=== PATIENT | male | born 1955 | race Caucasian/White ===

== ENCOUNTER 2017-08-05 11:41 | Inpatient (IN) ==
[2017-08-05] MEDS ORDERED: Ipratropium/Albuterol Neb 3 ML IH ONE (11:57)
[2017-08-05] MEDS ORDERED: Ipratropium/Albuterol Neb 3 ML ONE (12:08)
[2017-08-05 12:16] LABS: Hematocrit 32.2 % (37.5-50.1); Hemoglobin 11.2 g/dL (12.9-16.9); Immature Platelets 3.8 % (1.1-6.1); Mean Corpuscular HGB Conc 34.8 g/dL (31.6-35.5); Mean Corpuscular Hemoglobin 34.1 pg (28.0-33.3); Mean Corpuscular Volume 98.2 fL (83.0-100.0); Mean Platelet Volume 10.3 fL (9.4-12.4); Red Blood Count 3.28 M/mcL (4.19-5.50); Red Cell Distribution Width 13.6 % (11.5-14.5)
[2017-08-05] MEDS ORDERED: 0.9 % Sodium Chloride 1,000 ML IVC ONE (12:18)
--- NOTE | 2017-08-05 12:27 | Emergency Department Note ---
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 Bilateral pneumonia Qualifiers: Pneumonia type: due to unspecified organism Lung location: lower lobe of lung Qualified Code(s): J18.9 - Pneumonia, unspecified organism Disposition: Admitted As Inpatient Condition: Good Referrals: Omaira Rajan MD [Primary Care Provider] - Forms: ED Satisfaction Letter Time of Disposition: 13:47 General Adult HPI - General Chief complaint: ED Shortness of Breath/Dyspnea Stated complaint: low O2, nausea Time Seen by Provider: 08/05/17 11:57 Source: patient Limitations: no limitations Nursing Notes Reviewed: Yes Vital Signs Reviewed: Yes - History of Present Illness HPI Narrative: History of present illness: 62-year-old male former smoker to stand stop smoking 17 years ago presents with about one week of increasing cough malaise and shortness of breath. Patient had fever MAXIMUM TEMPERATURE of 103 yesterday. Denies ill contacts exotic food or recent travel. Also has decreased appetite and feeling fatigued and slightly weak. No headache or photophobia. There is been no dysuria. No skin rashes noted. No medication changes. Patient arrives and was brought back right away from the waiting room with a pulse ox of approximately 85% on room air. She has no known prior history of COPD asthma home oxygen using conditions Patient is here for further evaluation Pain Scale: 5 - Related Data Home Medications Medication Instructions Recorded Confirmed Aspirin [Lo-Dose Aspirin EC] 81 mg PO DAILY 08/05/17 08/05/17 Atorvastatin Calcium [Lipitor] 20 mg PO QPM 08/05/17 08/05/17 Carvedilol [Coreg] 6.25 mg PO BIDWM 08/05/17 08/05/17 Esomeprazole Magnesium [Nexium 20 mg PO DAILY 08/05/17 08/05/17 24Hr] Ibuprofen [Motrin] 800 mg PO Q8HR 08/05/17 08/05/17 Lisinopril [Zestril] 20 mg PO DAILY 08/05/17 08/05/17 Allergies Allergy/AdvReac Type Severity Reaction Status Date / Time No Known Allergies Allergy Verified 08/05/17 11:50 All systems ED: reviewed and negative except as stated. Constitutional: Reports: fever, chills, weakness Respiratory: Reports: cough, dyspnea Gastrointestinal: Reports: nausea Past Medical History - Past Medical History Attestation: Yes The following information was validated with the patient. Source: patient, old records reviewed, obtained from family Medical history: Reports: non-contributory, hyperlipidemia, hypertension, myocardial infarction Psychiatric history: Reports: no psych history - Social History Smoking Status: Former smoker Smokeless Tobacco Status: No Alcohol use: Reports: occasionally Drug use: Reports: none Physical Exam - General Limitations: no limitations General appearance: alert, in distress - Head Head exam: atraumatic, normocephalic - Eye Eye exam: Present: normal appearance, PERRL, EOMI - ENT ENT exam: normal oropharynx, mucous membranes dry - Neck Neck exam: Present: normal inspection, full ROM - Chest Chest inspection: Present: normal inspection, symmetric chest wall rise - Respiratory Respiratory exam: Present: respiratory distress, prolonged expiratory phase - Cardiovascular Cardiovascular exam: Present: normal rhythm, tachycardia - Abdominal Exam Abdominal exam: Present: soft, tenderness. Absent: guarding, rebound - Extremities Exam Extremities exam: Present: normal inspection, full ROM - Expanded Lower Extremity Exam Neurovascular/Tendon exam: Present: normal capillary refill Gait: not tested/not observed - Back Exam Back exam: Present: normal inspection, full ROM - Neurological Exam Neurological exam: Present: alert, oriented X3, CN II-XII intact - Psychiatric Psychiatric exam: Present: normal affect, normal mood - Skin Skin exam: Present: warm, dry, intact Course - Reevaluation(s) Reevaluation #1: The patient's history of fever and respiratory difficulty certainly pneumonia is in the differential. Patient is getting chest x-ray IV fluids do an abscess troponin screening labs. Providing 35 minutes of critical care services to this patient with admission disposition pending. Time: 12:33 Reevaluation #2: Patient's chest x-ray is read as bilateral airspace disease consistent with pneumonia. IV Rocephin and Zithromax ordered. Discussed case with the hospitalist Dr. Garcia. Additionally pathology called and said there was a blast cells on the peripheral smear certainly concerning about possible oncologic process. Patient to be admitted in stable condition with oncology consultation. Time: 13:45 Vital Signs Temperature 97.9 F 08/05/17 11:45 Pulse Rate 89 08/05/17 11:45 Respiratory Rate 18 08/05/17 11:45 Blood Pressure 108/68 08/05/17 11:45 O2 Sat by Pulse Oximetry 85 08/05/17 11:45 Temperature 97.9 F 08/05/17 11:45 Pulse Rate 89 08/05/17 11:45 Respiratory Rate 18 08/05/17 12:15 Blood Pressure 108/68 08/05/17 11:45 O2 Sat by Pulse Oximetry 85 08/05/17 12:15 Oxygen Delivery Oxygen Delivery Room Air Medical Decision Making - Medical Records Medical records reviewed: Yes I reviewed the patient's medical records. - Lab Data Lab results reviewed: Yes I reviewed the patient's lab results. Result diagrams: 08/05/17 12:09 08/05/17 12:09 Lab Results 08/05/17 08/05/17 08/05/17 Range/Units 12:09 12:09 12:09 WBC 8.5 (4.3-11.1) K/mcL RBC 3.28 L (4.19-5.50) M/mcL Hgb 11.2 L (12.9-16.9) g/dL Hct 32.2 L (37.5-50.1) % MCV 98.2 (83.0-100.0) fL MCH 34.1 H (28.0-33.3) pg MCHC 34.8 (31.6-35.5) g/dL RDW 13.6 (11.5-14.5) % Plt Count 97 L (140-400) K/mcL MPV 10.3 (9.4-12.4) fL Seg Neutrophils % 13.0 % Band Neutrophils % 9.0 H (0-4) % Lymphocytes % 67.0 % Metamyelocytes % 1.0 H (0) % Blast Cells % 10.0 H (0) % Neutrophils # 1.9 (1.6-8.9) K/mcL Lymphocytes # 5.7 H (0.6-4.6) K/mcL Reactive Lymphocytes Present A (Not Present) Toxic Granulation Present A (Not Present) Platelet Estimate Decreased L (Normal) Immature Plt Fraction 3.8 (1.1-6.1) % Sodium 141 (136-145) mEq/L Potassium 3.6 (3.5-4.5) mEq/L Chloride 107 (98-109) mEq/L Carbon Dioxide 18 L (19-29) mEq/L BUN 59 H (8-26) mg/dL Creatinine 2.71 H (0.72-1.25) mg/dL Est GFR ( Amer) 29 L (> 60) Est GFR (Non-Af Amer) 24 L (> 60) BUN/Creatinine Ratio 22 (6-26) Glucose 155 H (70-99) mg/dL Calculated Osmolality 312 H (280-300) Lactic Acid 1.6 (0.5-2.2) mmol/L Calcium 8.5 L (8.6-10.8) mg/dL Troponin I (0-0.03) ng/mL 08/05/17 Range/Units 12:09 WBC (4.3-11.1) K/mcL RBC (4.19-5.50) M/mcL Hgb (12.9-16.9) g/dL Hct (37.5-50.1) % MCV (83.0-100.0) fL MCH (28.0-33.3) pg MCHC (31.6-35.5) g/dL RDW (11.5-14.5) % Plt Count (140-400) K/mcL MPV (9.4-12.4) fL Seg Neutrophils % % Band Neutrophils % (0-4) % Lymphocytes % % Metamyelocytes % (0) % Blast Cells % (0) % Neutrophils # (1.6-8.9) K/mcL Lymphocytes # (0.6-4.6) K/mcL Reactive Lymphocytes (Not Present) Toxic Granulation (Not Present) Platelet Estimate (Normal) Immature Plt Fraction (1.1-6.1) % Sodium (136-145) mEq/L Potassium (3.5-4.5) mEq/L Chloride (98-109) mEq/L Carbon Dioxide (19-29) mEq/L BUN (8-26) mg/dL Creatinine (0.72-1.25) mg/dL Est GFR ( Amer) (> 60) Est GFR (Non-Af Amer) (> 60) BUN/Creatinine Ratio (6-26) Glucose (70-99) mg/dL Calculated Osmolality (280-300) Lactic Acid (0.5-2.2) mmol/L Calcium (8.6-10.8) mg/dL Troponin I 0.01 (0-0.03) ng/mL - Radiology Data Radiology results reviewed: Yes I reviewed the patient's radiology results. - EKG Data EKG #1 EKG attestation: Yes I reviewed and interpreted this EKG. EKG results narrative: Twelve-lead EKG interpreted without Cardiologic assistance shows: Sinus rhythm at 85 bpm, normal UT QS and QT corrected. Nonspecific ST-T changes with signs of old infarct. No old EKG available for comparison.
[2017-08-05 12:28] LABS: Calcium 8.5 mg/dL (8.6-10.8); Potassium 3.6 mEq/L (3.5-4.5)
[2017-08-05 12:48] LABS: Platelet Count 97 K/mcL (140-400)
[2017-08-05 13:12] LABS: Lymphocytes # 5.7 K/mcL (0.6-4.6); Neutrophils # 1.9 K/mcL (1.6-8.9); Platelet Estimate Decreased (Normal); Reactive Lymphocytes Present (Not Present)
[2017-08-05 13:13] LABS: Toxic Granulation Present (Not Present)
[2017-08-05] MEDS ORDERED: Azithromycin 500 MG in D5% in Water 250 ML IVPB ONE (13:44)
[2017-08-05] MEDS ORDERED: cefTRIAXone 1,000 MG in Water for inj. (sterile) 10 ML IVP ONE (13:44)
[2017-08-05] MEDS ORDERED: *HR* Morphine 2 MG/ML SYRINGE IVP PRN (16:07)
[2017-08-05] MEDS ORDERED: Naloxone 0.4 MG/ML INJ IVP PRN (16:07)
--- NOTE | 2017-08-05 16:26 | Internal Med History&Physical ---
Date of Encounter: 08/05/17 Time of Encounter: 16:22 Assessment and Plan (1) Bilateral pneumonia Current visit: Yes Status: Acute 62/male Multiple comorbid issues as mentioned below. Was recently evaluated by PCP and noted that persistently elevated WBC count Patient has an appointment to see an oncologist this week. Patient is a progressively worsening shortness of breath. This is the reason he visited emergency room. Noted that patient has a bilateral lower lobe pneumonia. Also it was noted that patient has a more than 10% blast cells on peripheral blood smear. Plan: -Admitted as inpatient. Antibiotics after blood culture. Ceftriaxone/azithromycin. 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 Patient is around 10% blasts in the peripheral blood. I have spoken with hematology oncology and he will himself review the peripheral blood smear and will give us recommendations We are drawing blood for flow cytometry and sending for further evaluation. (3) DVT prophylaxis Current visit: Yes Status: Acute SCD Medical decision making: This patient has a moderate to severe risk of worsening in spite of being on appropriate medication secondary to the underlying newly diagnosed hematological malignancy Internal Medicine - H&P: HPI Chief complaint: Shortness of breath Admitted From: Emergency Dept Plans for Post Hospital Care: Home History of present illness: PCP: Dr. Lopez Brief past medical history: Hypertension, GERD, hyperlipidemia, coronary artery disease, recently patient was evaluated for persistent elevated white blood cell count, patient has an appointment with oncology and coming week. History of present medical illness: Patient has ongoing worsening shortness of breath for the past 2 weeks. This morning it was noted that his shortness of breath was getting worse. Patient also had a cough with the yellowish-green expectoration. Noted that patient's oxygen saturation was progressively worsening. Patient was concerned about these symptoms and that is the reason he decided to come to the emergency room. Patient denies chest pain, nausea, vomiting, abdominal pain, dizziness or diarrhea. Workup in the emergency room: Patient was evaluated in the emergency room. X- ray chest was drawn. X-ray chest was suggestive of bilateral nasal pneumonia. Lab called and suggested that patient has a 10% blast cells. Reason for admission: Patient has a bilateral pneumonia with 10% blast cells. Family history: Noncontributory. Past Med Surg Social Fam HX - Past Medical History Medical history: non-contributory, hyperlipidemia, hypertension, myocardial infarction Psychiatric history: no psych history - Social History Smoking Status: Former smoker Smokeless Tobacco Status: No Alcohol use: occasionally Drug use: none Internal Medicine - H&P: Meds Aspirin [Lo-Dose Aspirin EC] 81 mg PO DAILY 08/05/17 [History] Atorvastatin Calcium [Lipitor] 20 mg PO QPM 08/05/17 [History] Carvedilol [Coreg] 6.25 mg PO BIDWM 08/05/17 [History] Esomeprazole Magnesium [Nexium 24Hr] 20 mg PO DAILY 08/05/17 [History] Ibuprofen [Motrin] 800 mg PO Q8HR 08/05/17 [History] Lisinopril [Zestril] 20 mg PO DAILY 08/05/17 [History] 3 Allergy/AdvReac Type Severity Reaction Status Date / Time No Known Allergies Allergy Verified 08/05/17 11:50 All Systems PM: A 10-system review of systems was performed and is negative for pertinent findings except as documented above in the HPI. - Constitutional Constitutional: no chills, no fever(s), no night sweats - EENT Eyes: no change in vision, no discharge, no pain, no photophobia Ears: no ear discharge, no ear pain, no tinnitus Nose, mouth and throat: no dysphagia, no nasal discharge, no neck pain, no sore throat - Cardiovascular Cardiovascular ROS IM: lightheadedness, no chest pain, no diaphoresis, no dyspnea, no palpitations, no syncope - Respiratory Respiratory: cough, dyspnea, wheezing, no excessive phlegm production - Gastrointestinal Gastrointestinal: no abdominal pain, no diarrhea, no hematemesis, no hematochezia, no melena, no nausea, no vomiting - Musculoskeletal Musculoskeletal ROS IM: no numbness, no tingling - Integumentary Integumentary IM: no rash, no unusual bruising - Neurological Neurological ROS: no confusion, no convulsions, no focal weakness, no numbness, no tingling, no tremor(s) - Hematologic/Lymphatic Hematologic/Lymphatic: no easy bruising - Constitutional Vitals: Temp Pulse Resp BP Pulse Ox 97.9 F 89 18 108/68 85 08/05/17 11:45 08/05/17 11:45 08/05/17 12:15 08/05/17 11:45 08/05/17 12:15 General appearance: Present: A&O X 3, pleasant, no acute distress, answers questions appropriately - Head Head exam: Present: atraumatic, normocephalic - Eye Eye exam: Present: PERRL, conjuntiva pink, sclera anicteric Pupils: Present: PERRL - Neck Neck exam general surgery: Present: supple, trachea midline. Absent: lymphadenopathy - Respiratory Respiratory exam: Present: CTAB. Absent: accessory muscle use, rales, rhonchi, wheezes - Cardiovascular Cardiovascular exam: Present: RRR, +S1, +S2. Absent: diastolic murmur, gallop, rubs, systolic murmur - GI/Abdominal GI/Abdominal exam: Present: normal bowel sounds, soft, no peritoneal signs. Absent: distended, tenderness - Extremities Exam Extremities exam: Present: warm, radial pulses palpable and symmetrical. Absent : calf tenderness, cyanotic, pedal edema - Neurological Exam Neurological exam: Present: CN II-XII intact, oriented X3, no focal deficits. Absent: pronater drift, facial droop, speech deficit - Skin Skin exam: Present: dry, intact Internal Med - H&P Results - Labs CBC & Chem 7: 08/05/17 12:09 08/05/17 12:09 Labs: Discussed with the emergency room physician.
[2017-08-05] MEDS: 0.9 % Sodium Chloride 1,000 ML IVC SCH (17:50)
--- NOTE | 2017-08-05 18:55 | Oncology Inp Consult Note ---
Date of Encounter: 08/05/17 Time of Encounter: 18:54 Assessment and Plan (1) Abnormal CBC Status: Acute Assessment and plan: - I discussed with Mr. Sosa and his the hematology abnormalities found in his peripheric blood smear and CBC, including features concerning for an underlying hematology malignancy, based on the presence of immature white blood cells( suspicious for blasts, approximately 10 percent). I discussed with him the recommendations to proceed with a bone marrow biopsy. He expressed agreement with my recommendations. - He reports not history of recent bleeding events, and I did not see aur rods in his blood smear so APL seems unlikely. I requested primary team to check APTT , INR to rule out subclinic coagulopathy. - Repeat CBC in AM, and transfuse 1 PRBC if Hgb level is less than 7 or HCT level is less than 21 percent. - Transfuse one pool of platelets if Platelet count is less than 20K or 50 K if there is associated bleeding. - Please arrange for a Bone marrow biopsy under IR guidance. - will follow up (2) Bilateral pneumonia Status: Acute Assessment and plan: - Continue empiric antibiotic coverage and infectious work up as per primary team. Qualifiers: Pneumonia type: due to unspecified organism Lung location: lower lobe of lung Qualified Code(s): J18.9 - Pneumonia, unspecified organism (3) Abdominal pain Status: Acute Assessment and plan: Reports right upper quadrant abdominal pain. No rebound tenderness during exam, but pain with moderate palpation in RUQ. Please check LFTs and consider RUQ abdominal US. Qualifiers: Abdominal location: right upper quadrant Qualified Code(s): R10.11 - Right upper quadrant pain - Data of Consult Requesting Physician: Deanna Casiano MD [facility] Consult Narrative Reason for consult: abnormal CBC History of present illness: Mr. Sosa is a 62 year old male with history of GERD, HTN, CAD, presenting to the ED with a one week history of fever, cough. He was diagnosed with bilateral PNA upon arrival to the ED. His CBC and blood smear showed immature wbcs, suspicious for blasts ( approximately 10 percent), an hematology recommendation was requested for further recommendations. Mr. Sosa was seen with his during the visit. He was scheduled to see Dr. Rizvi tomorrow for further investigation of his leucocytosis. He reports that he decided to come to the ED after experiencing worsening of his cough and shortness of breath. HE denies any recent bleeding events. Denies any history of hematology malignancies in his family, but his father had pancreatic cancer. His hospital course included CXR that showed findings consistent with bilateral PNA and his CBC and peripheric blood smear revealed immature white blood cells, suspicious for blasts( 10 percent). Reports feeling bloating for several days, with poor appetite and experiencing right upper quadrant abdominal pain while in the hospital. Past Med Surg Social Fam HX - Past Medical History Medical history: hyperlipidemia, hypertension, myocardial infarction Psychiatric history: no psych history - Social History Smoking Status: Former smoker Smokeless Tobacco Status: No Alcohol use: occasionally Drug use: none Medications and Allergies Aspirin [Lo-Dose Aspirin EC] 81 mg PO DAILY 08/05/17 [History] Atorvastatin Calcium [Lipitor] 20 mg PO QPM 08/05/17 [History] Carvedilol [Coreg] 6.25 mg PO BIDWM 08/05/17 [History] Esomeprazole Magnesium [Nexium 24Hr] 20 mg PO DAILY 08/05/17 [History] Ibuprofen [Motrin] 800 mg PO Q8HR 08/05/17 [History] Lisinopril [Zestril] 20 mg PO DAILY 08/05/17 [History] 3 Allergy/AdvReac Type Severity Reaction Status Date / Time No Known Allergies Allergy Verified 08/05/17 11:50 Constitutional: Present: fatigue, fever(s) Cardiovascular: Absent: chest pain, diaphoresis Respiratory: Present: cough, dyspnea Gastrointestinal: Present: abdominal pain, bloating Musculoskeletal: Absent: abnormal gait, joint swelling Neurological: Absent: abnormal gait, behavioral changes Psychiatric: Absent: auditory hallucinations, behavioral changes Endocrine: Present: fatigue Hematologic/Lymphatic: Present: as per HPI Oncology - Exam - Constitutional Vitals: Temp Pulse Resp BP Pulse Ox 97.9 F 53 24 159/75 90 08/05/17 11:45 08/05/17 17:57 08/05/17 17:57 08/05/17 17:57 08/05/17 17:57 - Head Head exam: Present: normal inspection, normocephalic - Eye Eye exam: Present: EOMI, normal appearance - ENT ENT exam: Present: normal exam - Neck Neck exam: Absent: lymphadenopathy, tenderness - Respiratory Respiratory exam: Present: rales - Cardiovascular Cardiovascular exam: Present: RRR. Absent: gallop - GI/Abdominal GI/Abdominal exam: Present: normal bowel sounds, soft, tenderness (right uppper quadrant tenderness.). Absent: rebound - Extremities Exam Extremities exam: Present: normal inspection. Absent: pedal edema - Back Exam Back exam: Absent: paraspinal tenderness - Neurological Exam Neurological exam: Present: alert, oriented X3 - Psychiatric Psychiatric exam: Present: normal affect, normal mood - Skin Skin exam: Present: normal color Consult Discharge Plan - Plan Referrals: Omaira Rajan MD [Primary Care Provider] -
[2017-08-05 20:21] LABS: INR 1.5; Prothrombin Time 15.8 Seconds (9.4-12.1)
[2017-08-05 20:24] LABS: Activated Partial Thrombo Time 28.7 Seconds (26.0-36.0)
[2017-08-06 03:29] LABS: INR 1.4; Prothrombin Time 15.7 Seconds (9.4-12.1)
[2017-08-06 03:32] LABS: Activated Partial Thrombo Time 29.1 Seconds (26.0-36.0)
[2017-08-06] MEDS: Acetaminophen 325 MG TABLET PO PRN ×3 (03:32→15:46)
[2017-08-06 03:36] LABS: Hematocrit 30.6 % (37.5-50.1); Hemoglobin 10.7 g/dL (12.9-16.9); Mean Corpuscular Hemoglobin 34.9 pg (28.0-33.3); Mean Corpuscular Volume 99.7 fL (83.0-100.0); Mean Platelet Volume 11.1 fL (9.4-12.4); Red Blood Count 3.07 M/mcL (4.19-5.50)
[2017-08-06 03:38] LABS: Albumin/Globulin Ratio 0.5 (1.1-2.2); Bilirubin,Total 1.9 mg/dL (0.2-1.2); Calcium 8.1 mg/dL (8.6-10.8); Immature Platelets 5.4 % (1.1-6.1); Magnesium 1.4 mg/dL (1.6-2.6); Phosphorous 4.1 mg/dL (2.3-4.7); Potassium 3.7 mEq/L (3.5-4.5); Red Cell Distribution Width 13.6 % (11.5-14.5)
[2017-08-06 03:39] LABS: Platelet Count 89 K/mcL (140-400)
[2017-08-06 04:09] LABS: Lymphocytes # 5.3 K/mcL (0.6-4.6); Neutrophils # 2.3 K/mcL (1.6-8.9)
[2017-08-06 04:13] LABS: Platelet Estimate Decreased (Normal)
[2017-08-06 04:14] LABS: Reactive Lymphocytes Present (Not Present); Smudge Cells Present (Not Present)
[2017-08-06] MEDS: 0.9 % Sodium Chloride 1,000 ML IVC SCH (08:45)
[2017-08-06] MEDS ORDERED: Albuterol 2.5 MG/3 ML NEBULIZER IH PRN (09:39)
[2017-08-06] MEDS ORDERED: MetroNIDAZOLE 500 MG/100 ML 500 MG/100 ML BAG IVPB SCH (11:00)
[2017-08-06] MEDS ORDERED: Vancomycin 1,500 MG in D5% in Water 250 ML IVPB SCH (11:00)
[2017-08-06] MEDS: Ipratropium/Albuterol Neb 3 ML IH SCH ×2 (11:24→16:14)
--- NOTE | 2017-08-06 13:29 | Oncology Inp Progress Note ---
Date of Encounter: 08/06/17 Time of Encounter: 13:24 (1) Abnormal CBC Current Visit: Yes Status: Acute Assessment and plan: - Mr. Sosa reports not significant overnight events. Blood cell counts overall remain stable. AM labs revealed decreased of peripheric blood blasts to 4 percent. Awaiting for peripheric blood flowcytometry. He is aware of plans for IR bone marrow biopsy for tomorrow. - Denies bleeding events. APTT within normal limits and INR 1.4, not suggestive of DIC. Recommendations/plan: - Check serum LDH, uric acid, haptoglobin, DIC panel. - Monitor CBC daily and transfuse 1 PRBC if Hgb level is less than 7 or HCT level is less than 21 percent. - Transfuse one pool of platelets if Platelet count is less than 20K or 50 K if there is associated bleeding. - Bone del rosario biopsy in AM (2) Abdominal pain Current Visit: Yes Status: Acute Assessment and plan: -Reports persistent RUQ abdominal pain; Labs today showed total bili of 1.9 mg/ dl. - Consider RUQ abdominal pain to rule out acute cholecystitis, cholangitis. - Monitor LFTs daily, check direct and indirect bilirrubin, as well as LDH. Qualifiers: Abdominal location: right upper quadrant Qualified Code(s): R10.11 - Right upper quadrant pain (3) Bilateral pneumonia Current Visit: Yes Status: Acute Assessment and plan: - Continue empiric antibiotic coverage and infectious work up as per primary team. Qualifiers: Pneumonia type: due to unspecified organism Lung location: lower lobe of lung Qualified Code(s): J18.9 - Pneumonia, unspecified organism Oncology: Subj Interval history: Denies significant overnight events. Again febrile today. seen with his at bedside. reports improved RUQ abdominal pain, but still persistent. Denies bleeding events. - Constitutional Vitals: Vital Signs Temp Pulse Resp BP Pulse Ox 08/06/17 11:25 20 90 08/06/17 11:01 100.8 F H 104 20 179/69 90 08/06/17 09:36 101.9 F H 08/06/17 07:38 98.4 F 93 17 136/69 91 08/06/17 03:51 98.9 F 105 20 126/64 90 08/05/17 23:13 97.3 F L 90 17 113/63 88 08/05/17 21:48 98.1 F 92 18 116/72 89 08/05/17 17:57 53 24 159/75 90 Intake and Output 08/05/17 08/06/17 08/06/17 23:59 07:59 15:59 Intake Total 1010 / 1010 1410 / 1410 Output Total 100 / 100 275 / 275 300 / 300 Balance 910 / 910 -275 / -275 1110 / 1110 Intake: IV Fluids 1010 / 1010 1050 / 1050 0.9 % Sodium Chloride 1,000 ML 1000 / 1000 1000 / 1000 @ 70 mls/hr IVC .[id number] [facility] Rx #:[id number] Rocephin 1,000 MG In Water for inj. (sterile) 10 ML @ 300 mls/ hr IVP ONCE ONE Rx#:[id number] Magnesium Sulfate Premix 2gm/ 50 / 50 50mL 2 gm In 50 ml @ 46.296 mls /hr IVPB Q1H [facility] Rx#:[id number] Oral 360 / 360 Output: Urine 100 / 100 275 / 275 300 / 300 Other: Meal Breakfast Percent of Meal Consumed 25% Weight 101 kg - Head Head exam: Present: normal inspection, normocephalic - Respiratory Respiratory exam: Present: rales. Absent: respiratory distress - Cardiovascular Cardiovascular exam: Present: RRR. Absent: irregular rhythm - GI/Abdominal GI/Abdominal exam: Present: normal bowel sounds, tenderness (RUQ tenderness.). Absent: organomegaly - Extremities Exam Extremities exam: Absent: pedal edema, tenderness - Back Exam Back exam: Present: normal inspection. Absent: paraspinal tenderness - Neurological Exam Neurological exam: Present: alert, oriented X3 Oncology: Obj Data - Labs CBC & Chem 7: 08/06/17 02:50 08/06/17 02:50 Labs: Laboratory Results - last 24 hr 08/05/17 08/06/17 08/06/17 19:57 02:50 02:50 WBC 8.3 RBC 3.07 L Hgb 10.7 L Hct 30.6 L MCV 99.7 MCH 34.9 H MCHC 35.0 RDW 13.6 Plt Count 89 L MPV 11.1 Seg Neutrophils % 22.0 Band Neutrophils % 6.0 H Lymphocytes % 64.0 Myelocytes % 4.0 H Blast Cells % 4.0 H Neutrophils # 2.3 Lymphocytes # 5.3 H Reactive Lymphocytes Present A Smudge Cells Present A Platelet Estimate Decreased L Immature Plt Fraction 5.4 PT 15.8 H 15.7 H INR 1.5 1.4 APTT 28.7 29.1 Sodium Potassium Chloride Carbon Dioxide BUN Creatinine Est GFR ( Amer) Est GFR (Non-Af Amer) BUN/Creatinine Ratio Glucose Calculated Osmolality Calcium Phosphorus Magnesium Total Bilirubin AST ALT Alkaline Phosphatase Serum Total Protein Albumin Globulin Albumin/Globulin Ratio 08/06/17 02:50 WBC RBC Hgb Hct MCV MCH MCHC RDW Plt Count MPV Seg Neutrophils % Band Neutrophils % Lymphocytes % Myelocytes % Blast Cells % Neutrophils # Lymphocytes # Reactive Lymphocytes Smudge Cells Platelet Estimate Immature Plt Fraction PT INR APTT Sodium 140 Potassium 3.7 Chloride 106 Carbon Dioxide 19 BUN 60 H Creatinine 2.67 H Est GFR ( Amer) 30 L Est GFR (Non-Af Amer) 24 L BUN/Creatinine Ratio 22 Glucose 137 H Calculated Osmolality 309 H Calcium 8.1 L Phosphorus 4.1 Magnesium 1.4 L Total Bilirubin 1.9 H AST 16 ALT 12 Alkaline Phosphatase 59 Serum Total Protein 6.0 Albumin 2.0 L Globulin 4.0 H Albumin/Globulin Ratio 0.5 L - ABG Interpretation ABG results: PT/INR, D-dimer PT 15.7 Seconds (9.4-12.1) H 08/06/17 02:50 Consult Discharge Plan - Plan Referrals: Omaira Rajan MD [Primary Care Provider] -
[2017-08-06] MEDS ORDERED: Azithromycin 500 MG in D5% in Water 250 ML IVPB SCH (15:00)
--- NOTE | 2017-08-06 15:51 | Internal Med Progress Note ---
Date of Encounter: 08/06/17 Time of Encounter: 15:49 - Assessment and plan (1) Sepsis Current Visit: Yes Status: Acute Qualifiers: Sepsis type: sepsis due to unspecified organism Qualified Code(s): A41.9 - Sepsis, unspecified organism (2) Bilateral pneumonia Current Visit: Yes Status: Acute Qualifiers: Pneumonia type: due to unspecified organism Lung location: lower lobe of lung Qualified Code(s): J18.9 - Pneumonia, unspecified organism (3) Acute renal failure Current Visit: Yes Status: Acute Qualifiers: Acute renal failure type: unspecified Qualified Code(s): N17.9 - Acute kidney failure, unspecified (4) Hypomagnesemia Current Visit: Yes Status: Acute (5) 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 Diagnosed with the bilateral pneumonia. Appears diaphoretic and toxic and not feeling well. Hemodynamically stable though. 10% blast cells noticed on peripheral dyspnea. Oncology consulted who has recommended bone marrow biopsy. In presence of 10% blast cells and was suspicion for hematological malignancy she is considered immune compromise and therefore I will change his antibiotics to vancomycin and Zosyn. Daily CBC. Start IV fluids. He is on duo nebs also. I discussed the case with interventional radiology and a bone marrow biopsy will be performed tomorrow. Acute renal failure noted and as noted above IV fluid abdomen is started and repeat renal function tomorrow. Low magnesium will be supplemented. Recheck tomorrow. Patient is septic. Await blood culture - Constitutional Vitals: Temp Pulse Resp BP Pulse Ox 101.5 F H 104 20 179/69 90 08/06/17 13:39 08/06/17 11:01 08/06/17 11:25 08/06/17 11:01 08/06/17 11:25 General appearance: Present: disheveled, mild distress, A&O X 3, answers questions appropriately Exam: Overall appeared diaphoretic and toxic and sick. - Head Head exam: Present: atraumatic, normocephalic - Eye Eye exam: Present: PERRL, conjuntiva pink, sclera anicteric Pupils: Present: PERRL - Neck Neck exam general surgery: Present: supple, trachea midline. Absent: lymphadenopathy - Respiratory Respiratory exam: Present: CTAB. Absent: accessory muscle use, rales, rhonchi, wheezes - Cardiovascular Cardiovascular exam: Present: RRR, +S1, +S2. Absent: diastolic murmur, gallop, rubs, systolic murmur - GI/Abdominal GI/Abdominal exam: Present: normal bowel sounds, soft, no peritoneal signs. Absent: distended, tenderness - Extremities Exam Extremities exam: Present: warm, radial pulses palpable and symmetrical. Absent : calf tenderness, cyanotic, pedal edema - Neurological Exam Neurological exam: Present: CN II-XII intact, oriented X3, no focal deficits. Absent: pronater drift, facial droop, speech deficit - Skin Skin exam: Present: dry, intact Internal Medicine: Result - Labs CBC & Chem 7: 08/06/17 02:50 08/06/17 02:50 Labs: Short CBC 08/06/17 Range/Units 02:50 WBC 8.3 (4.3-11.1) K/mcL Hgb 10.7 L (12.9-16.9) g/dL Hct 30.6 L (37.5-50.1) % Plt Count 89 L (140-400) K/mcL Neutrophils # 2.3 (1.6-8.9) K/mcL BMP 08/06/17 02:50 Sodium 140 Potassium 3.7 Chloride 106 Carbon Dioxide 19 BUN 60 H Creatinine 2.67 H Glucose 137 H Calcium 8.1 L Liver Function 08/06/17 Range/Units 02:50 Total Bilirubin 1.9 H (0.2-1.2) mg/dL AST 16 (5-34) Units/L ALT 12 (0-55) Units/L Alkaline Phosphatase 59 (38-126) Units/L Albumin 2.0 L (3.5-5.0) g/dL - ABG Interpretation ABG results: PT/INR, D-dimer PT 15.7 Seconds (9.4-12.1) H 08/06/17 02:50 Consult Discharge Plan - Plan Referrals: Omaira Rajan MD [Primary Care Provider] -
[2017-08-06] MEDS ORDERED: Cefepime HCl 2,000 MG in Water for inj. (sterile) 20 ML IVP SCH (16:00)
--- NOTE | 2017-08-06 16:44 | Electrocardiograph Report ---
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
[2017-08-06] MEDS ORDERED: Ibuprofen 400 MG TABLET PO PRN (17:11)
[2017-08-06 17:53] LABS: Uric Acid 7.6 mg/dL (3.5-7.2)
--- NOTE | 2017-08-06 18:05 | Event Note ---
Date of Encounter: 08/06/17 Time of Encounter: 18:01 Patient has been spiking fever 103. His antibiotic coverage was broadened in the morning and now he is on vancomycin and cefepime and Flagyl. His respiratory status deteriorated and now he needs 50% oxygen on partial rebreather. Hemodynamically patient is stable. He is oriented to time place and person and not complaining of any other symptoms. Patient will be transferred to ICU. Discussed the case with the oncologist correctional officer sergeant Dr. Diop. We discussed the cytometry report and Dr. Diop has indicated that we need a conclusive diagnosis for which a biopsy will be needed. I have already discussed the case with interventional radiologist who plans to do biopsy tomorrow as patient already ate today. He will be nothing by mouth after midnight. Dr. Diop and I discussed the possibility of transferring patient to [facility] therefore I discussed the case with Dr. Bashir in [facility] who has agreed for the transfer however he wants patient in intensive care unit. [facility] will inform us when they have a bed available. I ordered uric acid and DIC profile.
[2017-08-06 18:44] LABS: INR 1.5; Prothrombin Time 16.3 Seconds (9.4-12.1)
[2017-08-06 18:47] LABS: Activated Partial Thrombo Time 29.9 Seconds (26.0-36.0)
[2017-08-06 18:48] VITALS: BP 114/71
[2017-08-06] MEDS ORDERED: Aminoglycoside Consult 1 EACH MC ONE (18:54)
[2017-08-06 20:20] LABS: Fibrinogen > 1000 mg/dL (169-393)
== END 2017-08-06 18:55 | disposition critical access hospital (66) | DRG 871 ==
LOC: 2ANU 11:41 → EMEROO 11:41 → 2ANU 17:42
PROVIDERS: ADMIT Internal Medicine; ATTEND Internal Medicine

== ENCOUNTER 2018-01-27 13:38 | Inpatient (IN) ==
[2018-01-27] MEDS ORDERED: *HR* EPINEPHrine 1 MG/10 ML SYRINGE ONE ×2 (13:43→19:05)
[2018-01-27] MEDS ORDERED: Ipratropium/Albuterol Neb 3 ML ONE (13:44)
[2018-01-27] MEDS ORDERED: methylPREDNISolone 125 MG/2 ML VIAL ONE (13:46)
[2018-01-27] MEDS ORDERED: *HR* FentaNYL (PF) 100 MCG/2 ML VIAL ONE (13:50)
[2018-01-27] MEDS ORDERED: 0.9 % Sodium Chloride 2,000 ML ONE (13:56)
[2018-01-27 14:32] LABS: ABG Base Excess -18 mEq/L (-2 to 3); ABG HCO3 18 mEq/L (21-27); ABG Oxygen Saturation 38 % (95-98); ABG PCO2 146 mmHg (35-45); ABG PO2 48 mmHg (85-104); ABG TCO2 23 mEq/L (20-26)
[2018-01-27 14:59] LABS: ABG PCO2 > 150 mmHg (35-45); ABG PO2 67 mmHg (85-104)
[2018-01-27 15:08] LABS: Hematocrit 34.1 % (37.5-50.1); Mean Corpuscular HGB Conc 32.3 g/dL (31.6-35.5); Mean Corpuscular Hemoglobin 35.8 pg (28.0-33.3); Mean Corpuscular Volume 111.1 fL (83.0-100.0); Mean Platelet Volume 11.8 fL (9.4-12.4); Platelet Count 155 K/mcL (140-400); Red Blood Count 3.07 M/mcL (4.19-5.50); Red Cell Distribution Width 14.2 % (11.5-14.5)
[2018-01-27 15:13] LABS: INR 1.3
[2018-01-27] MEDS ORDERED: Sodium Bicarbonate 150 MEQ in D5% in Water 1,000 ML IVC ONE (15:15)
[2018-01-27 15:28] LABS: Troponin I < 0.03 ng/mL (< 0.04)
[2018-01-27] MEDS ORDERED: Amiodarone Premix 150 MG/100 ML BAG IVPB ONE (15:37)
[2018-01-27 15:38] LABS: Alanine Aminotransferase 9 Units/L (7-52); Albumin 3.3 g/dL (3.5-5.7); Albumin/Globulin Ratio 1.2 (1.1-2.2); Alkaline Phosphatase 43 Units/L (34-104); Aspartate Amino Transferase 16 Units/L (13-39); BUN/Creatinine Ratio 24 (6-26); Bilirubin,Total 0.6 mg/dL (0.3-1.0); Blood Urea Nitrogen 20 mg/dL (8-23); Calcium 9.3 mg/dL (8.6-10.3); Carbon Dioxide 20 mEq/L (23-29); Chloride 109 mEq/L (98-107); Creatine Kinase 19 Units/L (30-223); Globulin 2.8 g/dL (2.4-3.5); Glucose 171 mg/dL (70-105); Osmolality,Calculated 305 (280-300); Potassium 4.8 mEq/L (3.5-5.1); Sodium 144 mEq/L (136-145); Total Protein 6.1 g/dL (6.4-8.9); eGFR For African Americans > 60 (> 60); eGFR For Non-African Americans > 60 (> 60)
[2018-01-27 15:49] LABS: Lymphocytes # 21.4 K/mcL (0.6-4.6); Monocytes # 0.5 K/mcL (0.0-1.3); Platelet Estimate Normal (Normal); Smudge Cells Present (Not Present)
--- NOTE | 2018-01-27 15:51 | Emergency Department Note ---
Disposition Clinical Impression: Respiratory failure with hypoxia and hypercapnia Qualifiers: Chronicity: acute Qualified Code(s): J96.01 - Acute respiratory failure with hypoxia; J96.02 - Acute respiratory failure with hypercapnia; J96.02 - Acute respiratory failure with hypercapnia; J96.02 - Acute respiratory failure with hypercapnia Disposition: Still a Patient Condition: Critical Referrals: Omaira Rajan MD [Primary Care Provider] - Forms: ED Satisfaction Letter General Adult HPI - General Chief complaint: ED Shortness of Breath/Dyspnea Stated complaint: unresponsive Time Seen by Provider: 01/27/18 15:22 Source: family Limitations: no limitations - History of Present Illness Pain Scale: 0 - Related Data Home Medications Medication Instructions Recorded Confirmed Aspirin [Lo-Dose Aspirin EC] 81 mg PO DAILY 08/05/17 01/27/18 Atorvastatin Calcium [Lipitor] 20 mg PO QPM 08/05/17 01/27/18 Carvedilol [Coreg] 6.25 mg PO BIDWM 08/05/17 01/27/18 Lisinopril [Zestril] 20 mg PO DAILY 08/05/17 01/27/18 Acyclovir [Zovirax] 800 mg PO BID 09/10/17 01/27/18 Multivitamin with Iron 1 each PO DAILY 11/03/17 01/27/18 [Multivitamins with Iron] Acetaminophen [Tylenol] 500 mg PO Q6HR PRN 12/29/17 01/27/18 Cholecalciferol (D-3) [Vitamin D] 5,000 unit PO DAILY 12/29/17 01/27/18 Magnesium Oxide [Magnesium] 250 mg PO DAILY 12/29/17 01/27/18 Allopurinol [Zyloprim 300 MG] 300 mg PO DAILY 01/27/18 01/27/18 Amoxicillin/Clavulanate [Augmentin] 125 mg PO BIDWM 01/27/18 01/27/18 Ranitidine HCl [Zantac] 150 mg PO BID 01/27/18 01/27/18 Allergies Allergy/AdvReac Type Severity Reaction Status Date / Time No Known Allergies Allergy Verified 01/27/18 09:22 Past Medical History - Past Medical History Medical history: Reports: hyperlipidemia, hypertension, myocardial infarction Psychiatric history: Reports: no psych history - Social History Smoking Status: Former smoker Smokeless Tobacco Status: No Alcohol use: Reports: occasionally Drug use: Reports: none Physical Exam - General Limitations: no limitations General appearance: alert, in no apparent distress Course Course Narrative: See Dr Golden and See documentation for HPI/Physical Exam/MDM, procedure note only. Vital Signs Respiratory Rate 30 01/27/18 13:54 Blood Pressure 94/54 01/27/18 13:54 O2 Sat by Pulse Oximetry 72 01/27/18 13:54 Temperature 0 F L 01/27/18 14:13 Pulse Rate 105 01/27/18 14:13 Respiratory Rate 18 01/27/18 14:13 Blood Pressure 148/97 01/27/18 14:13 O2 Sat by Pulse Oximetry 30 01/27/18 14:13 Oxygen Delivery Oxygen Delivery Nasal Cannula Procedures - Central Line Placement Right Femoral Central Line Inserted*: Yes Central Line Catheter Replacement*: No Central Line Insertion: emergent Procedural Pause: verify patient name and date of , gareth and assess the site, assemble equipment and verify supplies, perform hand hygiene Patient Placed on Monitor/Pulse Ox: Yes During the Procedure: clinician is wearing sterile gloves, cap, mask,& gown during insertion, sterile field and sterile technique are maintained, patient's face is covered with drape or mask and wearing a cap, everyone in room is wearing a mask Central Line Prep: Chlorhexidine scrub Prep the Procedure Site: apply chloraprep to the skin using a back and forth scrubbing motion, apply chloraprep for 30 seconds (upper body), 1-2 min ( femoral sites), drape the patient with a full body drape Local Anesthetic: other anesthetic Central Line Lumen Inserted: triple (Introducer 8fr with 30cm 7fr triple lumen) Post Procedure: sutured in place, good blood return, all ports aspirated, flushed, capped, sterile dressing applied, guide wire removed and visualized, dressing is dated Patient Tolerated Procedure: well, no complications Complications: none Name of Clinician Inserting Central Line: Ann, Elder Attending Clinician Assisting/Completing Checklist: Shabana Date: 01/27/18 Time: 15:00 Medical Decision Making - Lab Data Result diagrams: 01/27/18 13:46 01/27/18 13:46 Lab Results 01/27/18 01/27/18 01/27/18 Range/Units 13:46 13:46 13:46 WBC 24.9 H D (4.3-11.1) K/mcL RBC 3.07 L (4.19-5.50) M/mcL Hgb 11.0 L (12.9-16.9) g/dL Hct 34.1 L (37.5-50.1) % MCV 111.1 H (83.0-100.0) fL MCH 35.8 H (28.0-33.3) pg MCHC 32.3 (31.6-35.5) g/dL RDW 14.2 (11.5-14.5) % Plt Count 155 (140-400) K/mcL MPV 11.8 (9.4-12.4) fL Immature Gran % Test Not Performed Seg Neutrophils % 12.0 % Lymphocytes % 86.0 % Monocytes % 2.0 % Eosinophils % Test Not Performed Basophils % Test Not Performed Neutrophils # 3.0 (1.6-8.9) K/mcL Lymphocytes # 21.4 H (0.6-4.6) K/mcL Monocytes # 0.5 (0.0-1.3) K/mcL Eosinophils # Test Not Performed Basophils # Test Not Performed Smudge Cells Present A (Not Present) Platelet Estimate Normal (Normal) PT 14.0 H (9.4-12.1) Seconds INR 1.3 ABG pH (7.32-7.45) pH Units ABG pCO2 (35-45) mmHg ABG pO2 (85-104) mmHg ABG HCO3 (21-27) mEq/L ABG Total CO2 (20-26) mEq/L ABG O2 Saturation (95-98) % ABG Base Excess (-2 to 3) mEq/L O2 Delivery Device Inspired O2 (1-15=lpm kl01-122=%) Sodium 144 (136-145) mEq/L Potassium 4.8 (3.5-5.1) mEq/L Chloride 109 H (98-107) mEq/L Carbon Dioxide 20 L (23-29) mEq/L BUN 20 (8-23) mg/dL Creatinine 0.85 (0.70-1.30) mg/dL Est GFR ( Amer) > 60 (> 60) Est GFR (Non-Af Amer) > 60 (> 60) BUN/Creatinine Ratio 24 (6-26) Glucose 171 H (70-105) mg/dL Calculated Osmolality 305 H (280-300) Lactic Acid (0.5-2.2) mmol/L Calcium 9.3 (8.6-10.3) mg/dL Total Bilirubin 0.6 (0.3-1.0) mg/dL AST 16 (13-39) Units/L ALT 9 (7-52) Units/L Alkaline Phosphatase 43 (34-104) Units/L Creatine Kinase 19 L (30-223) Units/L Troponin I < 0.03 (< 0.04) ng/mL B-Natriuretic Peptide (Less than 100) pg/mL Serum Total Protein 6.1 L (6.4-8.9) g/dL Albumin 3.3 L (3.5-5.7) g/dL Globulin 2.8 (2.4-3.5) g/dL Albumin/Globulin Ratio 1.2 (1.1-2.2) 01/27/18 01/27/18 01/27/18 Range/Units 13:46 14:27 14:55 WBC (4.3-11.1) K/mcL RBC (4.19-5.50) M/mcL Hgb (12.9-16.9) g/dL Hct (37.5-50.1) % MCV (83.0-100.0) fL MCH (28.0-33.3) pg MCHC (31.6-35.5) g/dL RDW (11.5-14.5) % Plt Count (140-400) K/mcL MPV (9.4-12.4) fL Immature Gran % Seg Neutrophils % % Lymphocytes % % Monocytes % % Eosinophils % Basophils % Neutrophils # (1.6-8.9) K/mcL Lymphocytes # (0.6-4.6) K/mcL Monocytes # (0.0-1.3) K/mcL Eosinophils # Basophils # Smudge Cells (Not Present) Platelet Estimate (Normal) PT (9.4-12.1) Seconds INR ABG pH 6.70 L* (7.32-7.45) pH Units ABG pCO2 146 H* (35-45) mmHg ABG pO2 48 L* (85-104) mmHg ABG HCO3 18 L (21-27) mEq/L ABG Total CO2 23 (20-26) mEq/L ABG O2 Saturation 38 L (95-98) % ABG Base Excess -18 L (-2 to 3) mEq/L O2 Delivery Device Bagging Inspired O2 100.0 (1-15=lpm hm10-275=%) Sodium (136-145) mEq/L Potassium (3.5-5.1) mEq/L Chloride (98-107) mEq/L Carbon Dioxide (23-29) mEq/L BUN (8-23) mg/dL Creatinine (0.70-1.30) mg/dL Est GFR ( Amer) (> 60) Est GFR (Non-Af Amer) (> 60) BUN/Creatinine Ratio (6-26) Glucose (70-105) mg/dL Calculated Osmolality (280-300) Lactic Acid > 10.0 H* (0.5-2.2) mmol/L Calcium (8.6-10.3) mg/dL Total Bilirubin (0.3-1.0) mg/dL AST (13-39) Units/L ALT (7-52) Units/L Alkaline Phosphatase (34-104) Units/L Creatine Kinase (30-223) Units/L Troponin I (< 0.04) ng/mL B-Natriuretic Peptide 316 H (Less than 100) pg/mL Serum Total Protein (6.4-8.9) g/dL Albumin (3.5-5.7) g/dL Globulin (2.4-3.5) g/dL Albumin/Globulin Ratio (1.1-2.2) 01/27/18 Range/Units 14:55 WBC (4.3-11.1) K/mcL RBC (4.19-5.50) M/mcL Hgb (12.9-16.9) g/dL Hct (37.5-50.1) % MCV (83.0-100.0) fL MCH (28.0-33.3) pg MCHC (31.6-35.5) g/dL RDW (11.5-14.5) % Plt Count (140-400) K/mcL MPV (9.4-12.4) fL Immature Gran % Seg Neutrophils % % Lymphocytes % % Monocytes % % Eosinophils % Basophils % Neutrophils # (1.6-8.9) K/mcL Lymphocytes # (0.6-4.6) K/mcL Monocytes # (0.0-1.3) K/mcL Eosinophils # Basophils # Smudge Cells (Not Present) Platelet Estimate (Normal) PT (9.4-12.1) Seconds INR ABG pH 6.80 L* (7.32-7.45) pH Units ABG pCO2 > 150 H* (35-45) mmHg ABG pO2 67 L (85-104) mmHg ABG HCO3 TNP (21-27) mEq/L ABG Total CO2 TNP (20-26) mEq/L ABG O2 Saturation TNP (95-98) % ABG Base Excess TNP (-2 to 3) mEq/L O2 Delivery Device Bagging Inspired O2 100.0 (1-15=lpm dq18-078=%) Sodium (136-145) mEq/L Potassium (3.5-5.1) mEq/L Chloride (98-107) mEq/L Carbon Dioxide (23-29) mEq/L BUN (8-23) mg/dL Creatinine (0.70-1.30) mg/dL Est GFR ( Amer) (> 60) Est GFR (Non-Af Amer) (> 60) BUN/Creatinine Ratio (6-26) Glucose (70-105) mg/dL Calculated Osmolality (280-300) Lactic Acid (0.5-2.2) mmol/L Calcium (8.6-10.3) mg/dL Total Bilirubin (0.3-1.0) mg/dL AST (13-39) Units/L ALT (7-52) Units/L Alkaline Phosphatase (34-104) Units/L Creatine Kinase (30-223) Units/L Troponin I (< 0.04) ng/mL B-Natriuretic Peptide (Less than 100) pg/mL Serum Total Protein (6.4-8.9) g/dL Albumin (3.5-5.7) g/dL Globulin (2.4-3.5) g/dL Albumin/Globulin Ratio (1.1-2.2)
[2018-01-27] MEDS ORDERED: Potassium Chloride 40 MEQ/200 ML BAG IVPB PRN (16:02)
--- NOTE | 2018-01-27 16:04 | Emergency Department Note ---
Disposition Clinical Impression: Respiratory failure with hypoxia and hypercapnia, Hypoxia, Cardiac arrest, Respiratory distress Disposition: Admitted As Inpatient Condition: Critical General Adult HPI - General Chief complaint: ED Shortness of Breath/Dyspnea Stated complaint: unresponsive Time Seen by Provider: 01/27/18 15:22 Source: family Limitations: no limitations - History of Present Illness Pain Scale: 0 - Related Data Home Medications Medication Instructions Recorded Confirmed Aspirin [Lo-Dose Aspirin EC] 81 mg PO DAILY 08/05/17 01/27/18 Atorvastatin Calcium [Lipitor] 20 mg PO QPM 08/05/17 01/27/18 Carvedilol [Coreg] 6.25 mg PO BIDWM 08/05/17 01/27/18 Lisinopril [Zestril] 20 mg PO DAILY 08/05/17 01/27/18 Acyclovir [Zovirax] 800 mg PO BID 09/10/17 01/27/18 Multivitamin with Iron 1 each PO DAILY 11/03/17 01/27/18 [Multivitamins with Iron] Acetaminophen [Tylenol] 500 mg PO Q6HR PRN 12/29/17 01/27/18 Cholecalciferol (D-3) [Vitamin D] 5,000 unit PO DAILY 12/29/17 01/27/18 Magnesium Oxide [Magnesium] 250 mg PO DAILY 12/29/17 01/27/18 Allopurinol [Zyloprim 300 MG] 300 mg PO DAILY 01/27/18 01/27/18 Amoxicillin/Clavulanate [Augmentin] 125 mg PO BIDWM 01/27/18 01/27/18 Ranitidine HCl [Zantac] 150 mg PO BID 01/27/18 01/27/18 Allergies Allergy/AdvReac Type Severity Reaction Status Date / Time No Known Allergies Allergy Verified 01/27/18 09:22 Past Medical History - Past Medical History Medical history: Reports: hyperlipidemia, hypertension, myocardial infarction Psychiatric history: Reports: no psych history - Social History Smoking Status: Former smoker Smokeless Tobacco Status: No Alcohol use: Reports: occasionally Drug use: Reports: none Physical Exam - General Limitations: no limitations General appearance: alert, in no apparent distress Course - Reevaluation(s) Reevaluation #1: Discussed with geophysical computer. He is requesting flow cytometry on the peripheral smear that he reviewed. Time: 16:18 Vital Signs Respiratory Rate 30 01/27/18 13:54 Blood Pressure 94/54 01/27/18 13:54 O2 Sat by Pulse Oximetry 72 01/27/18 13:54 Temperature 0 F L 01/27/18 14:13 Pulse Rate 101 01/27/18 18:30 Respiratory Rate 18 01/27/18 14:13 Blood Pressure 96/70 01/27/18 18:30 O2 Sat by Pulse Oximetry 95 01/27/18 18:30 Oxygen Delivery Oxygen Delivery Ventilator Medical Decision Making - Lab Data Result diagrams: 01/27/18 13:46 01/27/18 13:46 Lab Results 01/27/18 01/27/18 01/27/18 Range/Units 13:46 13:46 13:46 WBC 24.9 H D (4.3-11.1) K/mcL RBC 3.07 L (4.19-5.50) M/mcL Hgb 11.0 L (12.9-16.9) g/dL Hct 34.1 L (37.5-50.1) % MCV 111.1 H (83.0-100.0) fL MCH 35.8 H (28.0-33.3) pg MCHC 32.3 (31.6-35.5) g/dL RDW 14.2 (11.5-14.5) % Plt Count 155 (140-400) K/mcL MPV 11.8 (9.4-12.4) fL Immature Gran % Test Not Performed Seg Neutrophils % 12.0 % Lymphocytes % 86.0 % Monocytes % 2.0 % Eosinophils % Test Not Performed Basophils % Test Not Performed Neutrophils # 3.0 (1.6-8.9) K/mcL Lymphocytes # 21.4 H (0.6-4.6) K/mcL Monocytes # 0.5 (0.0-1.3) K/mcL Eosinophils # Test Not Performed Basophils # Test Not Performed Smudge Cells Present A (Not Present) Platelet Estimate Normal (Normal) PT 14.0 H (9.4-12.1) Seconds INR 1.3 ABG pH (7.32-7.45) pH Units ABG pCO2 (35-45) mmHg ABG pO2 (85-104) mmHg ABG HCO3 (21-27) mEq/L ABG Total CO2 (20-26) mEq/L ABG O2 Saturation (95-98) % ABG Base Excess (-2 to 3) mEq/L O2 Delivery Device Inspired O2 (1-15=lpm kt46-163=%) Sodium 144 (136-145) mEq/L Potassium 4.8 (3.5-5.1) mEq/L Chloride 109 H (98-107) mEq/L Carbon Dioxide 20 L (23-29) mEq/L BUN 20 (8-23) mg/dL Creatinine 0.85 (0.70-1.30) mg/dL Est GFR ( Amer) > 60 (> 60) Est GFR (Non-Af Amer) > 60 (> 60) BUN/Creatinine Ratio 24 (6-26) Glucose 171 H (70-105) mg/dL Calculated Osmolality 305 H (280-300) Lactic Acid (0.5-2.2) mmol/L Calcium 9.3 (8.6-10.3) mg/dL Total Bilirubin 0.6 (0.3-1.0) mg/dL AST 16 (13-39) Units/L ALT 9 (7-52) Units/L Alkaline Phosphatase 43 (34-104) Units/L Creatine Kinase 19 L (30-223) Units/L Troponin I < 0.03 (< 0.04) ng/mL B-Natriuretic Peptide (Less than 100) pg/mL Serum Total Protein 6.1 L (6.4-8.9) g/dL Albumin 3.3 L (3.5-5.7) g/dL Globulin 2.8 (2.4-3.5) g/dL Albumin/Globulin Ratio 1.2 (1.1-2.2) 01/27/18 01/27/18 01/27/18 Range/Units 13:46 14:27 14:55 WBC (4.3-11.1) K/mcL RBC (4.19-5.50) M/mcL Hgb (12.9-16.9) g/dL Hct (37.5-50.1) % MCV (83.0-100.0) fL MCH (28.0-33.3) pg MCHC (31.6-35.5) g/dL RDW (11.5-14.5) % Plt Count (140-400) K/mcL MPV (9.4-12.4) fL Immature Gran % Seg Neutrophils % % Lymphocytes % % Monocytes % % Eosinophils % Basophils % Neutrophils # (1.6-8.9) K/mcL Lymphocytes # (0.6-4.6) K/mcL Monocytes # (0.0-1.3) K/mcL Eosinophils # Basophils # Smudge Cells (Not Present) Platelet Estimate (Normal) PT (9.4-12.1) Seconds INR ABG pH 6.70 L* (7.32-7.45) pH Units ABG pCO2 146 H* (35-45) mmHg ABG pO2 48 L* (85-104) mmHg ABG HCO3 18 L (21-27) mEq/L ABG Total CO2 23 (20-26) mEq/L ABG O2 Saturation 38 L (95-98) % ABG Base Excess -18 L (-2 to 3) mEq/L O2 Delivery Device Bagging Inspired O2 100.0 (1-15=lpm cb65-161=%) Sodium (136-145) mEq/L Potassium (3.5-5.1) mEq/L Chloride (98-107) mEq/L Carbon Dioxide (23-29) mEq/L BUN (8-23) mg/dL Creatinine (0.70-1.30) mg/dL Est GFR ( Amer) (> 60) Est GFR (Non-Af Amer) (> 60) BUN/Creatinine Ratio (6-26) Glucose (70-105) mg/dL Calculated Osmolality (280-300) Lactic Acid > 10.0 H* (0.5-2.2) mmol/L Calcium (8.6-10.3) mg/dL Total Bilirubin (0.3-1.0) mg/dL AST (13-39) Units/L ALT (7-52) Units/L Alkaline Phosphatase (34-104) Units/L Creatine Kinase (30-223) Units/L Troponin I (< 0.04) ng/mL B-Natriuretic Peptide 316 H (Less than 100) pg/mL Serum Total Protein (6.4-8.9) g/dL Albumin (3.5-5.7) g/dL Globulin (2.4-3.5) g/dL Albumin/Globulin Ratio (1.1-2.2) 05/01/18 Range/Units 14:55 WBC (4.3-11.1) K/mcL RBC (4.19-5.50) M/mcL Hgb (12.9-16.9) g/dL Hct (37.5-50.1) % MCV (83.0-100.0) fL MCH (28.0-33.3) pg MCHC (31.6-35.5) g/dL RDW (11.5-14.5) % Plt Count (140-400) K/mcL MPV (9.4-12.4) fL Immature Gran % Seg Neutrophils % % Lymphocytes % % Monocytes % % Eosinophils % Basophils % Neutrophils # (1.6-8.9) K/mcL Lymphocytes # (0.6-4.6) K/mcL Monocytes # (0.0-1.3) K/mcL Eosinophils # Basophils # Smudge Cells (Not Present) Platelet Estimate (Normal) PT (9.4-12.1) Seconds INR ABG pH 6.80 L* (7.32-7.45) pH Units ABG pCO2 > 150 H* (35-45) mmHg ABG pO2 67 L (85-104) mmHg ABG HCO3 TNP (21-27) mEq/L ABG Total CO2 TNP (20-26) mEq/L ABG O2 Saturation TNP (95-98) % ABG Base Excess TNP (-2 to 3) mEq/L O2 Delivery Device Bagging Inspired O2 100.0 (1-15=lpm ma92-147=%) Sodium (136-145) mEq/L Potassium (3.5-5.1) mEq/L Chloride (98-107) mEq/L Carbon Dioxide (23-29) mEq/L BUN (8-23) mg/dL Creatinine (0.70-1.30) mg/dL Est GFR ( Amer) (> 60) Est GFR (Non-Af Amer) (> 60) BUN/Creatinine Ratio (6-26) Glucose (70-105) mg/dL Calculated Osmolality (280-300) Lactic Acid (0.5-2.2) mmol/L Calcium (8.6-10.3) mg/dL Total Bilirubin (0.3-1.0) mg/dL AST (13-39) Units/L ALT (7-52) Units/L Alkaline Phosphatase (34-104) Units/L Creatine Kinase (30-223) Units/L Troponin I (< 0.04) ng/mL B-Natriuretic Peptide (Less than 100) pg/mL Serum Total Protein (6.4-8.9) g/dL Albumin (3.5-5.7) g/dL Globulin (2.4-3.5) g/dL Albumin/Globulin Ratio (1.1-2.2) Critical Care Time Critical Care Time: Yes Total Critical Care Time: 65 Attestation: Critical care performed: Time is exclusive of separately billable procedures. Time includes: direct patient care, patient reassessment, coordination of patient care, interpretation of data (laboratory data, radiology data, and respiratory data), review of patient's medical records, medical consultation and documentation of patient care. Procedures included in critical care time: Procedures excluded from critical care time: Attestation Statement - Attestation Attestation: I examined this patient and my medical decision-making was reviewed with the Resident Physician. I agree with the documented findings, disposition and treatment plan as described except to the extent set forth below. Patient presents to the ED in severe respiratory distress. Patient is with his . He was having an outpatient IVIG infusion performed today per his chronic leukemia. Recently admitted at the [facility] for thoracentesis. states he complained of shortness of breath and then became unresponsive. He has had multiple IV Ig infusions before with no side effect. On examination he arrived in severe respiratory distress. Oxygen saturations were reading 40-50% . We did treat him for an anaphylactic reaction with no response. He was intubated. Shortly after intubation we lost pulse and ACLS was begun. Patient was given multiple medications. He was given TPA. He received multiple rounds of epinephrine and bicarbonate. Calcium. He had a trauma line placed in his groin. Multiple ABGs which did show slight improvement of his pH. Patient continued to have a loss of pulse shortly after R[place], with every resuscitation. . At the time of admission to the ICU he was satting 90% on a ventilator with a PEEP of 18. He was on epinephrine, norepinephrine, and bicarbonate drips. CTA and head CT pending on his way to ICU. Patient made a DNR rest prior to his movement ICU.
--- NOTE | 2018-01-27 16:11 | Emergency Department Note ---
Disposition Clinical Impression: Respiratory failure with hypoxia and hypercapnia, Hypoxia, Cardiac arrest, Respiratory distress Disposition: Admitted As Inpatient Condition: Critical Referrals: Omaira Rajan MD [Primary Care Provider] - Forms: ED Satisfaction Letter CPR HPI - General Chief Complaint: ED Shortness of Breath/Dyspnea Stated Complaint: unresponsive Time Seen by Provider: 01/27/18 15:22 Source: family Mode of arrival: EMS Limitations: altered mental status, age Nursing Notes Reviewed: Yes Vital Signs Reviewed: Yes - History of Present Illness HPI Narrative: 62-year-old male with a history of CLL status post IVIG therapy prior to arrival presents with his with decreased responsiveness. provided history stating the patient had his typical IVIG therapy which is at the past. States that the patient became more and more unresponsive with difficulty in breathing. Patient does not provide an accurate history given his altered mental status. states that the patient has had a history of CAD in the remote past. No recent trauma. No anticoagulation. States that the patient does not have a history of COPD. Denies any specific prodrome prior to today's therapy. - Related Data Home Medications Medication Instructions Recorded Confirmed Aspirin [Lo-Dose Aspirin EC] 81 mg PO DAILY 08/05/17 01/27/18 Atorvastatin Calcium [Lipitor] 20 mg PO QPM 08/05/17 01/27/18 Carvedilol [Coreg] 6.25 mg PO BIDWM 08/05/17 01/27/18 Lisinopril [Zestril] 20 mg PO DAILY 08/05/17 01/27/18 Acyclovir [Zovirax] 800 mg PO BID 09/10/17 01/27/18 Multivitamin with Iron 1 each PO DAILY 11/03/17 01/27/18 [Multivitamins with Iron] Acetaminophen [Tylenol] 500 mg PO Q6HR PRN 12/29/17 01/27/18 Cholecalciferol (D-3) [Vitamin D] 5,000 unit PO DAILY 12/29/17 01/27/18 Magnesium Oxide [Magnesium] 250 mg PO DAILY 12/29/17 01/27/18 Allopurinol [Zyloprim 300 MG] 300 mg PO DAILY 01/27/18 01/27/18 Amoxicillin/Clavulanate [Augmentin] 125 mg PO BIDWM 01/27/18 01/27/18 Ranitidine HCl [Zantac] 150 mg PO BID 01/27/18 01/27/18 Allergies Allergy/AdvReac Type Severity Reaction Status Date / Time No Known Allergies Allergy Verified 01/27/18 09:22 Limitations: ROS unobtainable due to patients medical condition CPR PMH - Past Medical History Medical history: Reports: hyperlipidemia, hypertension, myocardial infarction Psychiatric history: Reports: no psych history - Social History Smoking Status: Former smoker Alcohol use: Reports: occasionally Drug use: Reports: none Physical Exam - General Limitations: altered mental status General appearance: alert, in no apparent distress - Head Head exam: atraumatic - Eye Eye exam: Present: normal appearance, mydriasis - ENT ENT exam: normal exam, mucous membranes moist - Neck Neck exam: Present: normal inspection, trachea midline - Chest Chest inspection: Present: symmetric chest wall rise. Absent: rash - Respiratory Respiratory exam: Present: respiratory distress, other (Labored respirations with diffuse coarse) - Cardiovascular Cardiovascular exam: Present: tachycardia. Absent: systolic murmur - Abdominal Exam Abdominal exam: Present: soft, Non-Tender - Extremities Exam Extremities exam: Present: normal inspection - Expanded Lower Extremity Exam Neurovascular/Tendon exam: Present: other (Faint and thready pulse) - Neurological Exam Neurological exam: Present: other (Decreased GCS, moving upper extremities with nonpurposeful movements.) - Skin Skin exam: Present: warm, intact, normal color, diaphoresis. Absent: rash, cyanosis Course Course Narrative: Patient presented with decreased responsiveness. Patient was hypoxic with labored respirations. Initial concerns for anaphylaxis, heart failure, ARDS. Patient was treated broadly initially with anaphylactic dosing of epinephrine as well as IV steroids and Benadryl. Supplemental oxygen applied which did not reverse the patient's hypoxia. Patient became increasingly less responsive. Lungs revealed diffuse rhonchi. Patient was intubated due to declining mental status as well as labored respirations with hypoxia. Patient subsequently went into hypoxemic cardiac arrest and underwent various rounds of ACLS. Patient received 5-7 mg of epinephrine throughout the course of ACLS. Patient also received bicarbonate, calcium. Patient was ultimately placed on a nor epi as well as epinephrine infusion. Patient was also placed on a bicarbonate drip. Critical care was consult it during the course of the patient's ED evaluation. Attempt to optimize oxygenation and ventilation was unsuccessful. Initial bedside echo revealed trace pericardial effusion with no significant increase in the right ventricle dilation. Patient's lung exam did reveal B-lines in nearly all hodges. Stat echo was ordered given the patient's critical status. Family ultimately stated that the patient is DNR CC a and does not want any further heroic lifesaving measures. Declining any additional IV medications including antiarrhythmics and/or pressors. Despite persistent ACLS and aggressive resuscitation the patient remained acidotic. Patient was also given IV thrombolytics scissors highest concern of PE in a patient with leukemia. - Reevaluation(s) Reevaluation #1: Discussed the course of the ED evaluation with the family. At this point the family wished to change the patient's CODE STATUS. Family is at bedside. [employer] Technician support provided. States that they do not want any further rescue interventions Time: 16:16 Reevaluation #2: Patient did have a run of V. tach which resolved. Family declined any antiarrhythmic therapy. Time: 16:16 - Consultations Consultation #1: Critical care was consulted Time: 16:19 Consultation #2: Patient's family at bedside. Patient's blood pressure remains preserved. Patient will get a CT of the head as well as the chest. Time: 17:16 Vital Signs Respiratory Rate 30 01/27/18 13:54 Blood Pressure 94/54 01/27/18 13:54 O2 Sat by Pulse Oximetry 72 01/27/18 13:54 Temperature 0 F L 01/27/18 14:13 Pulse Rate 99 01/27/18 17:19 Respiratory Rate 18 01/27/18 14:13 Blood Pressure 91/68 01/27/18 17:19 O2 Sat by Pulse Oximetry 90 01/27/18 17:19 Oxygen Delivery Oxygen Delivery Ventilator Procedures - Intubation Time out performed: No sedative: Etomidate Mg Given: 20 paralytic: Rocuronium Mg Given: 100 Laryngoscope: Hermilo ET Tube Size: 7.5 ET Tube Uncuffed: Yes Tube Secured Depth (cm): 24 Tube Secured Location: lips Tube Placement Confirmation: visualized tube passing through cords, equal breath sounds bilaterally, no breath sounds over epigastrium, confirmation by capnometry Patient Tolerated Procedure: well, no complications Intubation Complications: none Cardiac Arrest/CPR - MDM Narrative Medical decision making narrative: Patient has a history of CLL. Patient presented with decreased responsiveness. Patient had an element of VQ mismatch and shunting. Would could not correct with supplemental oxygen. Patient required mechanical ventilation. Patient likely has an element of ARDS are TRALI patient remained on pressors for comfort per family's request. Patient's condition is guarded and the family is aware of the patient's eminent prognosis. - Lab Data Lab results reviewed: Yes I reviewed the patient's lab results. Result diagrams: 01/27/18 13:46 01/27/18 13:46 Lab Results 01/27/18 01/27/18 01/27/18 Range/Units 13:46 13:46 13:46 WBC 24.9 H D (4.3-11.1) K/mcL RBC 3.07 L (4.19-5.50) M/mcL Hgb 11.0 L (12.9-16.9) g/dL Hct 34.1 L (37.5-50.1) % MCV 111.1 H (83.0-100.0) fL MCH 35.8 H (28.0-33.3) pg MCHC 32.3 (31.6-35.5) g/dL RDW 14.2 (11.5-14.5) % Plt Count 155 (140-400) K/mcL MPV 11.8 (9.4-12.4) fL Immature Gran % Test Not Performed Seg Neutrophils % 12.0 % Lymphocytes % 86.0 % Monocytes % 2.0 % Eosinophils % Test Not Performed Basophils % Test Not Performed Neutrophils # 3.0 (1.6-8.9) K/mcL Lymphocytes # 21.4 H (0.6-4.6) K/mcL Monocytes # 0.5 (0.0-1.3) K/mcL Eosinophils # Test Not Performed Basophils # Test Not Performed Smudge Cells Present A (Not Present) Platelet Estimate Normal (Normal) PT 14.0 H (9.4-12.1) Seconds INR 1.3 ABG pH (7.32-7.45) pH Units ABG pCO2 (35-45) mmHg ABG pO2 (85-104) mmHg ABG HCO3 (21-27) mEq/L ABG Total CO2 (20-26) mEq/L ABG O2 Saturation (95-98) % ABG Base Excess (-2 to 3) mEq/L O2 Delivery Device Inspired O2 (1-15=lpm fx50-268=%) Sodium 144 (136-145) mEq/L Potassium 4.8 (3.5-5.1) mEq/L Chloride 109 H (98-107) mEq/L Carbon Dioxide 20 L (23-29) mEq/L BUN 20 (8-23) mg/dL Creatinine 0.85 (0.70-1.30) mg/dL Est GFR ( Amer) > 60 (> 60) Est GFR (Non-Af Amer) > 60 (> 60) BUN/Creatinine Ratio 24 (6-26) Glucose 171 H (70-105) mg/dL Calculated Osmolality 305 H (280-300) Lactic Acid (0.5-2.2) mmol/L Calcium 9.3 (8.6-10.3) mg/dL Total Bilirubin 0.6 (0.3-1.0) mg/dL AST 16 (13-39) Units/L ALT 9 (7-52) Units/L Alkaline Phosphatase 43 (34-104) Units/L Creatine Kinase 19 L (30-223) Units/L Troponin I < 0.03 (< 0.04) ng/mL B-Natriuretic Peptide (Less than 100) pg/mL Serum Total Protein 6.1 L (6.4-8.9) g/dL Albumin 3.3 L (3.5-5.7) g/dL Globulin 2.8 (2.4-3.5) g/dL Albumin/Globulin Ratio 1.2 (1.1-2.2) 01/27/18 01/27/18 01/27/18 Range/Units 13:46 14:27 14:55 WBC (4.3-11.1) K/mcL RBC (4.19-5.50) M/mcL Hgb (12.9-16.9) g/dL Hct (37.5-50.1) % MCV (83.0-100.0) fL MCH (28.0-33.3) pg MCHC (31.6-35.5) g/dL RDW (11.5-14.5) % Plt Count (140-400) K/mcL MPV (9.4-12.4) fL Immature Gran % Seg Neutrophils % % Lymphocytes % % Monocytes % % Eosinophils % Basophils % Neutrophils # (1.6-8.9) K/mcL Lymphocytes # (0.6-4.6) K/mcL Monocytes # (0.0-1.3) K/mcL Eosinophils # Basophils # Smudge Cells (Not Present) Platelet Estimate (Normal) PT (9.4-12.1) Seconds INR ABG pH 6.70 L* (7.32-7.45) pH Units ABG pCO2 146 H* (35-45) mmHg ABG pO2 48 L* (85-104) mmHg ABG HCO3 18 L (21-27) mEq/L ABG Total CO2 23 (20-26) mEq/L ABG O2 Saturation 38 L (95-98) % ABG Base Excess -18 L (-2 to 3) mEq/L O2 Delivery Device Bagging Inspired O2 100.0 (1-15=lpm ld69-604=%) Sodium (136-145) mEq/L Potassium (3.5-5.1) mEq/L Chloride (98-107) mEq/L Carbon Dioxide (23-29) mEq/L BUN (8-23) mg/dL Creatinine (0.70-1.30) mg/dL Est GFR ( Amer) (> 60) Est GFR (Non-Af Amer) (> 60) BUN/Creatinine Ratio (6-26) Glucose (70-105) mg/dL Calculated Osmolality (280-300) Lactic Acid > 10.0 H* (0.5-2.2) mmol/L Calcium (8.6-10.3) mg/dL Total Bilirubin (0.3-1.0) mg/dL AST (13-39) Units/L ALT (7-52) Units/L Alkaline Phosphatase (34-104) Units/L Creatine Kinase (30-223) Units/L Troponin I (< 0.04) ng/mL B-Natriuretic Peptide 316 H (Less than 100) pg/mL Serum Total Protein (6.4-8.9) g/dL Albumin (3.5-5.7) g/dL Globulin (2.4-3.5) g/dL Albumin/Globulin Ratio (1.1-2.2) 01/27/18 Range/Units 14:55 WBC (4.3-11.1) K/mcL RBC (4.19-5.50) M/mcL Hgb (12.9-16.9) g/dL Hct (37.5-50.1) % MCV (83.0-100.0) fL MCH (28.0-33.3) pg MCHC (31.6-35.5) g/dL RDW (11.5-14.5) % Plt Count (140-400) K/mcL MPV (9.4-12.4) fL Immature Gran % Seg Neutrophils % % Lymphocytes % % Monocytes % % Eosinophils % Basophils % Neutrophils # (1.6-8.9) K/mcL Lymphocytes # (0.6-4.6) K/mcL Monocytes # (0.0-1.3) K/mcL Eosinophils # Basophils # Smudge Cells (Not Present) Platelet Estimate (Normal) PT (9.4-12.1) Seconds INR ABG pH 6.80 L* (7.32-7.45) pH Units ABG pCO2 > 150 H* (35-45) mmHg ABG pO2 67 L (85-104) mmHg ABG HCO3 TNP (21-27) mEq/L ABG Total CO2 TNP (20-26) mEq/L ABG O2 Saturation TNP (95-98) % ABG Base Excess TNP (-2 to 3) mEq/L O2 Delivery Device Bagging Inspired O2 100.0 (1-15=lpm on34-226=%) Sodium (136-145) mEq/L Potassium (3.5-5.1) mEq/L Chloride (98-107) mEq/L Carbon Dioxide (23-29) mEq/L BUN (8-23) mg/dL Creatinine (0.70-1.30) mg/dL Est GFR ( Amer) (> 60) Est GFR (Non-Af Amer) (> 60) BUN/Creatinine Ratio (6-26) Glucose (70-105) mg/dL Calculated Osmolality (280-300) Lactic Acid (0.5-2.2) mmol/L Calcium (8.6-10.3) mg/dL Total Bilirubin (0.3-1.0) mg/dL AST (13-39) Units/L ALT (7-52) Units/L Alkaline Phosphatase (34-104) Units/L Creatine Kinase (30-223) Units/L Troponin I (< 0.04) ng/mL B-Natriuretic Peptide (Less than 100) pg/mL Serum Total Protein (6.4-8.9) g/dL Albumin (3.5-5.7) g/dL Globulin (2.4-3.5) g/dL Albumin/Globulin Ratio (1.1-2.2) - Radiology Data Radiology results reviewed: Yes I reviewed the patient's radiology results. Chest X-Ray 01/27/18 14:03 IMPRESSION: 1. Multifocal airspace and interstitial opacities, right greater than left. Similar in distribution when compared to the prior exam but slightly more prominent on today's study. Findings either reflect multifocal pneumonia versus pulmonary edema. Underlying neoplasm is not excluded given persistent findings. Consider further evaluation with CT. 2. Endotracheal tube tip approximately 3.5 cm above the kitty. 3. There is also bilateral hilar prominence which may reflect underlying adenopathy. D/ / 01/27/2018 14:27:09 Magaly White MD / jessica Interpreting Provider: Magaly White MD Echocardiogram Limited Views 01/27/18 14:58 Impressions: Severe global reduction in LV systolic function. LVEF challenging to quantify secondary to elevated heart rates. Severe right ventricular hypokinesis. Findings discussed with ER Resident. Left Ventricular Wall Motion: Rest Echo Findings The apex, apical inferior, mid inferior, basal inferior, apical anterior, mid anterior, basal anterior, apical septal, mid inferior septal, basal inferior septal, apical lateral, mid anterior lateral, basal anterior lateral, mid anterior septal, mid inferior lateral, basal anterior septal and basal inferior lateral [place] were hypokinetic. Findings: Study Quality * Technically challenging due to clinical status - heart rates elevated, s/p cardiac arrest. ECG Findings * Unclear underlying rhythm - appears regular, tachycardic HR 130's. Left Ventricle * Severely reduced LV systolic function. * LV thrombus not identified on this study - Imaging enhancement not performed. Right Ventricle * Severe right ventricular hypokinesis. * Unable to evaluate segmental wall motion. - EKG Data EKG attestation: Yes I reviewed and interpreted this EKG. EKG shows normal: sinus rhythm Rate: tachycardia Rhythm: NSR [place]/QRS: normal ST segment depression in: v4, v5 QTc: other (407) QRS morphology: other (146) S.B.A.R. - Zoe Situation: Demographics Background: Presenting Complaint Assessment: Vital Signs, Patient/Family Expectation Recommendation: Barrier(s) to disposition, Recommendation based on pending studies, treatments, or consults Zoe Report Given to: Dr. Mervin Enriquez Repor Time: 16:20
[2018-01-27] MEDS ORDERED: Norepinephrine 4 MG in D5% in Water 250 ML IVC SCH ×2 (16:15→19:15)
[2018-01-27] MEDS ORDERED: EPINEPHrine 1 MG in D5% in Water 250 ML IVC SCH (16:15)
--- NOTE | 2018-01-27 16:29 | Pulmonology History & Physical ---
<Morris Arias - Last Filed: 01/27/18 18:17> Date of Encounter: 01/27/18 Time of Encounter: 15:20 Assessment and Plan (1) Cardiac arrest Status: Acute S/p cardiac arrest on 01/27/18. Suspected arrest secondary to hypoxia. ABG demonstrates severe PaO2/FiO2 67 Differential includes pulmonary embolism, ARDS, multifocal pneumonia. Patient received TPA in the emergency department for suspected pulmonary embolism. Emergent echo obtained in the emergency department: Impressions: Severe global reduction in LV systolic function. LVEF challenging to quantify secondary to elevated heart rates. Severe right ventricular hypokinesis. Ventricular tachycardia in the emergency department resolved without intervention. Currently on significant vasopressor support with Levophed and epinephrine. Obtain CTA Heparinize after Head CT Continuous telemetry. Patient's CODE STATUS changed to DNR CCA. (2) Acute respiratory failure Status: Acute Acute hypercapnic, hypoxic respiratory failure necessitating intubation. Chest x-ray appears relatively unchanged from previous. Differential includes ARDS, pulmonary edema, multifocal pneumonia. Significant V/Q mismatch with inability to adequately oxygenate. Currently ventilated respiratory rate 28, tidal volume 550, PEEP 14. ABG demonstrates hypercapnic respiratory failure with profound acidosis. Continuous pulse oximetry. Qualifiers: Respiratory failure complication: hypoxia and hypercapnia Qualified Code(s) : J96.01 - Acute respiratory failure with hypoxia; J96.02 - Acute respiratory failure with hypercapnia; J96.02 - Acute respiratory failure with hypercapnia; J96.02 - Acute respiratory failure with hypercapnia (3) CLL (chronic lymphocytic leukemia) Status: Chronic Followed by oncology. Received IVIG today. (4) DVT prophylaxis Status: Acute Patient received systemic thrombolysis. SCDs currently. History of Present Illness Chief complaint: cardiac arrest HPI: Mr. Sosa is a 62 year old male with a past medical history of CAD, hypertension, hyperlipidemia, CLL who presented to the emergency department secondary to altered mental status and respiratory distress. History is obtained by family present. Family reports he was at the cancer center today to undergo IVIG. He has had this treatment previously without any adverse events. reports that she was walking to the car and that he felt short of breath. He then collapsed and became obtunded. The patient had to be assisted out of his car in the parking lot at the emergency department and was brought in for evaluation. Upon placement in the room the patient was emergently intubated for airway securement secondary to encephalopathy. The patient succumbed to a post intubation arrest and CPR was initiated. Patient seen and evaluated just after postarrest intubation. Upon arrival to the room CPR is in progress for PEA. in the hallway confirming story of treatment for CLL today. She also remarks that he previously was at [facility] where they thought he might have pneumonia and he had a CT scan but he was otherwise well and had no issues. He was previously admitted here for pneumonia and found to have an abnormal CBC which prompted the workup which resulted in a diagnosis of CLL. During this time the patient continued to have intermittent episodes of PEA. Of note during his arrest he was incredibly difficult to oxygenate with saturations as low as 30% and never improving over 70. The patient was placed on a Levophed and then epinephrine drip which were post maxed. Central line placed in the emergency department for pressure delivery. The patient had ROSC 3 times while I was in the department evaluating. Chest x- ray reviewed showing chronic lung changes. Given his profound mismatch the decision was made to administer TPA for potential pulmonary embolism. After this the patient was placed on the ventilator and ventilated aggressively to attempt to improve oxygenation. Soon after this the patient's family elected to change his CODE STATUS after one hour of intermittent CPR to DNR CCA. Prior to arrival to the intensive care unit the patient had an episode of ventricular tachycardia which the family requested not be treated. Past Med Surg Social Fam HX - Past Medical History Source: old records reviewed, obtained from family Medical history: hyperlipidemia, hypertension, myocardial infarction Psychiatric history: no psych history - Social History Smoking Status: Former smoker Smokeless Tobacco Status: No Alcohol use: occasionally Drug use: none Medications and Allergies Aspirin [Lo-Dose Aspirin EC] 81 mg PO DAILY 08/05/17 [History] Atorvastatin Calcium [Lipitor] 20 mg PO QPM 08/05/17 [History] Carvedilol [Coreg] 6.25 mg PO BIDWM 08/05/17 [History] Lisinopril [Zestril] 20 mg PO DAILY 08/05/17 [History] Acyclovir [Zovirax] 800 mg PO BID 09/10/17 [History] Acetaminophen [Tylenol] 500 mg PO Q6HR PRN 12/29/17 [History] Cholecalciferol (D-3) [Vitamin D] 5,000 unit PO DAILY 12/29/17 [History] Magnesium Oxide [Magnesium] 250 mg PO DAILY 12/29/17 [History] Allopurinol [Zyloprim 300 MG] 300 mg PO DAILY 01/27/18 [History] 3 Allergy/AdvReac Type Severity Reaction Status Date / Time No Known Allergies Allergy Verified 01/27/18 09:22 ROS unobtainable: due to endotracheal tube All Systems: The remainder of the systems were reviewed and are negative Physical Examination Vital Signs: Vital Signs, Last 4 Hours Temp Pulse Resp BP Pulse Ox 01/27/18 16:23 106 84/65 54 01/27/18 16:22 113 112/77 61 01/27/18 14:48 114 161/98 65 01/27/18 14:46 111 116/112 77 01/27/18 14:38 110 160/100 36 01/27/18 14:33 148/97 01/27/18 14:30 113/46 33 01/27/18 14:23 119 163/106 44 01/27/18 14:16 49 79/55 15 01/27/18 14:13 0 F L 105 18 148/97 30 01/27/18 14:11 113 173/105 20 01/27/18 13:54 30 94/54 72 General appearance: other (Intubated.) Eyes: nonicteric ENT: other (ET tube in place) Effort: other (Mechanically ventilated) Cardiovascular: other (Tachycardia. Regular rhythm.) Gastrointestinal: soft, non-distended Integumentary: other (Mottling to the lower extremities.) Extremities: no edema Musculoskeletal: no deformities other (Intubated.) Results - Laboratory Findings CBC and BMP: 01/27/18 13:46 01/27/18 13:46 ABG ABG pH 6.80 pH Units (7.32-7.45) L* 01/27/18 14:55 ABG pCO2 > 150 mmHg (35-45) H* 01/27/18 14:55 ABG pO2 67 mmHg (85-104) L 01/27/18 14:55 ABG O2 Saturation TNP 01/27/18 14:55 PT/INR, D-dimer PT 14.0 Seconds (9.4-12.1) H 01/27/18 13:46 Abnormal lab findings: Abnormal lab results WBC 24.9 K/mcL (4.3-11.1) H D 01/27/18 13:46 RBC 3.07 M/mcL (4.19-5.50) L 01/27/18 13:46 Hgb 11.0 g/dL (12.9-16.9) L 01/27/18 13:46 Hct 34.1 % (37.5-50.1) L 01/27/18 13:46 MCV 111.1 fL (83.0-100.0) H 01/27/18 13:46 MCH 35.8 pg (28.0-33.3) H 01/27/18 13:46 Lymphocytes # 21.4 K/mcL (0.6-4.6) H 01/27/18 13:46 Smudge Cells Present (Not Present) A 01/27/18 13:46 PT 14.0 Seconds (9.4-12.1) H 01/27/18 13:46 ABG pH 6.80 pH Units (7.32-7.45) L* 01/27/18 14:55 ABG pCO2 > 150 mmHg (35-45) H* 01/27/18 14:55 ABG pO2 67 mmHg (85-104) L 01/27/18 14:55 Chloride 109 mEq/L (98-107) H 01/27/18 13:46 Carbon Dioxide 20 mEq/L (23-29) L 01/27/18 13:46 Glucose 171 mg/dL (70-105) H 01/27/18 13:46 Calculated Osmolality 305 (280-300) H 01/27/18 13:46 Lactic Acid > 10.0 mmol/L (0.5-2.2) H* 01/27/18 14:55 Creatine Kinase 19 Units/L (30-223) L 01/27/18 13:46 B-Natriuretic Peptide 316 pg/mL (Less than 100) H 01/27/18 13:46 Serum Total Protein 6.1 g/dL (6.4-8.9) L 01/27/18 13:46 Albumin 3.3 g/dL (3.5-5.7) L 01/27/18 13:46 - Diagnostic Findings Chest x-ray: image reviewed <Wilder Jeffries - Last Filed: 01/28/18 00:04> Date of Encounter: 01/27/18 History of Present Illness HPI: Mr. Sosa is a 62 year old male All Systems: The remainder of the systems were reviewed and are negative Physical Examination Vital Signs: Vital Signs, Last 4 Hours Pulse Resp BP Pulse Ox 01/27/18 21:00 30 97/76 100 01/27/18 20:51 30 108/78 99 01/27/18 20:00 101 30 110/78 100 Results - Laboratory Findings CBC and BMP: 01/27/18 13:46 01/27/18 13:46 ABG ABG pH 7.36 pH Units (7.32-7.45) D 01/27/18 20:46 ABG pCO2 44 mmHg (35-45) D 01/27/18 20:46 ABG pO2 98 mmHg (85-104) 01/27/18 20:46 ABG O2 Saturation 97 % (95-98) 01/27/18 20:46 PT/INR, D-dimer PT 22.1 Seconds (9.4-12.1) H D 01/27/18 19:29 Abnormal lab findings: Abnormal lab results WBC 24.9 K/mcL (4.3-11.1) H D 01/27/18 13:46 RBC 3.07 M/mcL (4.19-5.50) L 01/27/18 13:46 Hgb 11.0 g/dL (12.9-16.9) L 01/27/18 13:46 Hct 34.1 % (37.5-50.1) L 01/27/18 13:46 MCV 111.1 fL (83.0-100.0) H 01/27/18 13:46 MCH 35.8 pg (28.0-33.3) H 01/27/18 13:46 Lymphocytes # 21.4 K/mcL (0.6-4.6) H 01/27/18 13:46 Smudge Cells Present (Not Present) A 01/27/18 13:46 PT 22.1 Seconds (9.4-12.1) H D 01/27/18 19:29 APTT 48.4 Seconds (26.0-36.0) H 01/27/18 19:29 Chloride 109 mEq/L (98-107) H 01/27/18 13:46 Carbon Dioxide 20 mEq/L (23-29) L 01/27/18 13:46 Glucose 171 mg/dL (70-105) H 01/27/18 13:46 POC Glucose 369 mg/dL (70-99) H 01/27/18 19:10 Calculated Osmolality 305 (280-300) H 01/27/18 13:46 Lactic Acid 5.1 mmol/L (0.5-2.2) H* 01/27/18 19:51 Creatine Kinase 19 Units/L (30-223) L 01/27/18 13:46 B-Natriuretic Peptide 316 pg/mL (Less than 100) H 01/27/18 13:46 Serum Total Protein 6.1 g/dL (6.4-8.9) L 01/27/18 13:46 Albumin 3.3 g/dL (3.5-5.7) L 01/27/18 13:46 - Attending Attestation I saw and evaluated this patient and my medical decision-making was reviewed with the Resident Physician. I agree with the documented findings, disposition and treatment plan as described except to the extent set forth below. We independently had [id number] contact with the patient I spent 50 minutes of Critical Care time with this patient. It involved decision making of high complexity to assess, manipulate, and support vital organ system failure and/or to prevent further life threatening deterioration of the patient's condition. The time involved in the performance of separately reportable procedures was not counted toward critical care time. Patient seen and examined at bedside Labs, radiology, chart personally reviewed. Management was reviewed during multidisciplinary critical care rounds. COURT COMMISSIONER: Patient is unresponsive after 5 rounds of cardiac arrest . Pupils are slightly unequal and fixed . The CT scan shows Clot in the Left MCA with acute infarct evolving left MCA territory . High chance of bleeding after TPA administration . Patient will need Neurointervention will send him to [facility] Pulm: Patient CTA showed pulmonary embolism started on Heparin drip patient had severe profound lactic acidosis adjusted TV and RR to compensate for metabolic acidosis . Cards: Cardiogenic shock after cardiac arrest on maxed out Levophed and Epinpehrine FEN-GI: NPO Renal: Labs reviewed with contrasted study patient has high chance of going on dialysis ID:To cover with broad spectrum antibiotics Heme/Onc:CLL on treatment might be the reason for pro-coagulant study Endo: Glucose Monitored Integ/MSK: Skin Care per routine ICU Nursing Protocol to prevent ulcers. Lines: All lines examined without evidence of infection : Dispo: Patient will need thrombus removal will send him to [facility] for neurointervention CODE: DNRA -I
[2018-01-27] MEDS ORDERED: Isovue-370 500 ML INFUS..BTL IV ONE (17:15)
[2018-01-27] MEDS ORDERED: D5% in Water 250 ML ONE ×2 (19:05→19:23)
[2018-01-27] MEDS ORDERED: *HR* Norepinephrine 4 MG/4 ML VIAL IVC ONE ×2 (19:23→21:39)
[2018-01-27] MEDS ORDERED: *HR* Heparin 5,000 UNIT/ML VIAL IVP ONE (19:29)
[2018-01-27] MEDS ORDERED: *HR* Heparin 5,000 UNIT/ML VIAL IVP PRN ×4 (19:29→19:55)
[2018-01-27] MEDS ORDERED: Heparin 25,000 UNIT/500 ML D5W 25,000 UNIT/500 ML BAG IVC SCH ×2 (19:30→19:59)
[2018-01-27 19:57] LABS: Activated Partial Thrombo Time 48.4 Seconds (26.0-36.0); Prothrombin Time 22.1 Seconds (9.4-12.1)
--- NOTE | 2018-01-27 20:26 | Discharge Summary ---
<Mark Altamirano - Last Filed: 01/27/18 20:23> Date of Encounter: 01/27/18 Time of Encounter: 19:15 - Discharge Diagnosis (1) Arterial ischemic stroke, MCA, left, acute Priority: Primary Status: Acute (2) Bilateral pulmonary embolism Priority: Secondary Status: Acute (3) Cardiac arrest Priority: Primary Status: Acute (4) Respiratory failure with hypoxia and hypercapnia Priority: Secondary Status: Acute Qualifiers: Chronicity: acute on chronic Qualified Code(s): J96.21 - Acute and chronic respiratory failure with hypoxia; J96.22 - Acute and chronic respiratory failure with hypercapnia; J96.22 - Acute and chronic respiratory failure with hypercapnia; J96.22 - Acute and chronic respiratory failure with hypercapnia (5) Bilateral pneumonia Priority: Secondary Status: Acute Qualifiers: Pneumonia type: due to unspecified organism Lung location: lower lobe of lung Qualified Code(s): J18.9 - Pneumonia, unspecified organism (6) CLL (chronic lymphocytic leukemia) Priority: Secondary Status: Chronic - Discharge Medications Home Medications: Aspirin [Lo-Dose Aspirin EC] 81 mg PO DAILY 08/05/17 [History] Atorvastatin Calcium [Lipitor] 20 mg PO QPM 08/05/17 [History] Carvedilol [Coreg] 6.25 mg PO BIDWM 08/05/17 [History] Lisinopril [Zestril] 20 mg PO DAILY 08/05/17 [History] Acyclovir [Zovirax] 800 mg PO BID 09/10/17 [History] Acetaminophen [Tylenol] 500 mg PO Q6HR PRN 12/29/17 [History] Cholecalciferol (D-3) [Vitamin D] 5,000 unit PO DAILY 12/29/17 [History] Magnesium Oxide [Magnesium] 250 mg PO DAILY 12/29/17 [History] Allopurinol [Zyloprim 300 MG] 300 mg PO DAILY 01/27/18 [History] Allergies/Adverse Reactions: 3 Allergy/AdvReac Type Severity Reaction Status Date / Time No Known Allergies Allergy Verified 01/27/18 09:22 Labs on day of discharge: Labs from last 24 hours 01/27/18 01/27/18 01/27/18 19:51 19:29 19:10 PT 22.1 H D INR 2.0 D APTT 48.4 H POC Glucose 369 H Lactic Acid 5.1 H* Date of admission: 01/27/18 17:49 Primary care physician: Omaira Parnell Discharging clinician: Mark Altamirano Anticipated date of discharge: 01/27/18 - Patient Status Disposition: Transfer Critical Access Hosp Condition: Critical Functional capacity at discharge: bed bound Overall status at discharge: patient is not back to baseline - Discharge Instructions Follow Up With: Omaira Rajan MD [Primary Care Provider] - - Diet and Activity Activity: other Diet: other (npo) - Hospital Course Hospital course: Mr. Sosa is a 62 year old male with a past medical history of CAD, hypertension, hyperlipidemia, CLL who presented to the emergency department secondary to altered mental status and respiratory distress. History is obtained by family present. Family reports he was at the cancer center today to undergo IVIG. He has had this treatment previously without any adverse events. reports that she was walking to the car and that he felt short of breath. He then collapsed and became obtunded. The patient had to be assisted out of his car in the parking lot at the emergency department and was brought in for evaluation. Upon placement in the room the patient was emergently intubated for airway securement secondary to encephalopathy. The patient succumbed to a post intubation arrest and CPR was initiated. Patient seen and evaluated just after postarrest intubation. Upon arrival to the room CPR is in progress for PEA. in the hallway confirming story of treatment for CLL today. She also remarks that he previously was at [facility] where they thought he might have pneumonia and he had a CT scan but he was otherwise well and had no issues. He was previously admitted here for pneumonia and found to have an abnormal CBC which prompted the workup which resulted in a diagnosis of CLL. During this time the patient continued to have intermittent episodes of PEA. Of note during his arrest he was incredibly difficult to oxygenate with saturations as low as 30% and never improving over 70. The patient was placed on a Levophed and then epinephrine drip which were post maxed. Central line placed in the emergency department for pressure delivery. The patient had ROSC 3 times while I was in the department evaluating. Chest x- ray reviewed showing chronic lung changes. Given his profound mismatch the decision was made to administer TPA for potential pulmonary embolism. After this the patient was placed on the ventilator and ventilated aggressively to attempt to improve oxygenation. Soon after this the patient's family elected to change his CODE STATUS after one hour of intermittent CPR to DNR CCA. Prior to arrival to the intensive care unit the patient had an episode of ventricular tachycardia which the family requested not be treated. Following initial stabilization and improved oxygen saturation, the patient was sent for head CT and CTA of the chest. His head CT did demonstrate a massive clot that occluded the M1 branch of the left MCA with associated infarct of the entire left MCA territory. His chest CT did demonstrate bilateral pulmonary emboli which are not in a saddle formation L>R. A low-dose heparin drip was initiated, and [facility] was contacted for potential transfer for thrombectomy. I spoke with Neurointensivist, Dr. Gloria, who reviewed the patient's imaging and determined that the most appropriate action for best possible outcome would be life-flight to [facility] ED for evaluation for emergent thrombectomy. I spoke extensively with the patient's family who agreed that transfer to [facility] is the desirable option. - Time Spent with Patient Total time spent providing and/or coordinating discharge services: Physical Examination Vital Signs: Vital Signs, Last 4 Hours Temp Pulse Resp BP Pulse Ox 01/27/18 19:15 98.8 F 106 30 102/71 100 01/27/18 18:30 101 96/70 95 01/27/18 18:00 98 90/67 92 General appearance: no acute distress, comatose Eyes: nonicteric ENT: oropharynx moist Neck: supple, no lymphadenopathy Effort: mildly labored Inspection: normal Auscultation: bilateral: clear Cardiovascular: regular rate and rhythm (rapid) Gastrointestinal: normoactive bowel sounds, soft, non-tender, non-distended Integumentary: normal Extremities: no cyanosis, no edema, no clubbing Musculoskeletal: no deformities, ROM normal pupils equal and round, unable to assess due to mental status, other (series of muscle movements that do not appear intentional, primarily on the left but with some min) <Wilder Jeffries S - Last Filed: 01/28/18 00:06> Date of Encounter: 01/28/18 Labs on day of discharge: Labs from last 24 hours 01/27/18 01/27/18 01/27/18 20:46 19:51 19:29 PT 22.1 H D INR 2.0 D APTT 48.4 H Sample Site R Radial ABG pH 7.36 D ABG pCO2 44 D ABG pO2 98 ABG HCO3 24 ABG Total CO2 26 ABG O2 Saturation 97 ABG Base Excess -1 Breezy Test N/A Respiration Rate 30 O2 Delivery Device Adult Vent Blood Gas Modality VC Inspired O2 100.0 Tidal Volume 600 PEEP 18 POC Glucose Lactic Acid 5.1 H* 01/27/18 19:10 PT INR APTT Sample Site ABG pH ABG pCO2 ABG pO2 ABG HCO3 ABG Total CO2 ABG O2 Saturation ABG Base Excess Breezy Test Respiration Rate O2 Delivery Device Blood Gas Modality Inspired O2 Tidal Volume PEEP POC Glucose 369 H Lactic Acid Date of admission: 01/27/18 17:49 Primary care physician: Omaira [facility] - Hospital Course Hospital course: I agree with documentation done by the resident . - Time Spent with Patient Total time spent providing and/or coordinating discharge services: Physical Examination Vital Signs: Vital Signs, Last 4 Hours Resp BP Pulse Ox 01/27/18 21:00 30 97/76 100 01/27/18 20:51 30 108/78 99
[2018-01-27 20:49] LABS: ABG Base Excess -1 mEq/L (-2 to 3); ABG HCO3 24 mEq/L (21-27); ABG Oxygen Saturation 97 % (95-98); ABG PCO2 44 mmHg (35-45); ABG PH 7.36 pH Units (7.32-7.45); ABG PO2 98 mmHg (85-104); ABG TCO2 26 mEq/L (20-26); Blood Gas Modality VC; Blood Gas PEEP 18 cm H2O; Blood Gas Respiration Rate 30; Blood Gas VT 600 cc
[2018-01-27 21:21] VITALS: BP 97/76
[2018-01-27] MEDS ORDERED: *HR* Rocuronium Bromide 50 MG/5 ML VIAL IVC ONE (21:39)
[2018-01-27] MEDS ORDERED: *HR* Etomidate 20 MG/10 ML AMPUL IVP ONE (21:39)
[2018-01-27] MEDS ORDERED: *HR* EPINEPHrine 1 MG/10 ML SYRINGE IVP ONE (21:39)
[2018-01-27] MEDS ORDERED: *HR* EPINEPHrine 1 MG/ML AMPUL IV ONE (21:39)
[2018-01-27] MEDS ORDERED: D5% in Water 250 ML IV BAG IV ONE (21:39)
--- NOTE | 2018-01-28 12:26 | Electrocardiograph Report ---
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
== END 2018-01-27 21:40 | disposition critical access hospital (66) | DRG 64 ==
LOC: EMEROO 13:38 → ICNU 17:49
PROVIDERS: ADMIT Internal Medicine Pulmonary Disease; ATTEND Internal Medicine Pulmonary Disease